=== PATIENT | male | born 1970 | race Caucasian/White ===

== ENCOUNTER 2018-05-28 09:30 | Inpatient (IN) | payer BC, OTHER ==
[~2018-05-28] VITALS: Ht 182.9 cm; Wt 142.6 kg
[2018-05-28] VITALS (12 sets, daily range): BP systolic 70–152; BP diastolic 43–67
[2018-05-28] MEDS ORDERED: normal saline 1000ml 1,000 ML IV ONE (09:37)
[2018-05-28] MEDS ORDERED: normal saline 1000ML IV soln IVB ONE (09:40)
[2018-05-28] MEDS ORDERED: morphine 4 MG/ML inj SYRINge IV ONE (09:40)
[2018-05-28] MEDS ORDERED: NO HOME MEDS (09:48)
[2018-05-28] MEDS: esmolol/sodium cl bag 250 ML IV SCH ×9 (09:54→23:46)
[2018-05-28] MEDS: NITROPRUSSIDE IV SCH ×6 (09:55→19:33)
[2018-05-28 10:00] LABS: BASOPHILS % (AUTO) 0.3 % (0-1); EOSINOPHILS % (AUTO) 0.1 % (0-6); HEMOGLOBIN 13.9 g/dl (14.0-17.9); LYMPHOCYTES # (AUTO) 1.2 X10'3 (1.1-4.8); LYMPHOCYTES % (AUTO) 7.3 % (21-51); MEAN CORPUSCULAR HEMOGLOBIN 29.3 PG (27.0-31.0); MEAN CORPUSCULAR HGB CONC 33.8 % (33.0-36.5); MEAN CORPUSCULAR VOLUME 86.7 FL (78-98); MONOCYTES # (AUTO) 0.7 X10'3 (0-0.9); MONOCYTES % (AUTO) 4.1 % (2-12); NEUTROPHILS # (AUTO) 14.4 X10'3 (1.8-7.7); NEUTROPHILS % (AUTO) 88.2 % (42-75); PLATELET COUNT 199 X10'3 (140-440); RED BLOOD COUNT 4.73 X10'6 (4.70-6.10); RED CELL DISTRIBUTION WIDTH 13.3 % (11.5-14.5); WHITE BLOOD COUNT 16.3 X10'3 (4.5-11.0)
--- NOTE | 2018-05-28 10:00 | NUR ---
Nipride increased to 1.75mcg/kg/min at [address] Smallwood.
[2018-05-28 10:07] LABS: ALANINE AMINOTRANSFERASE 47 U/L (12-78); ALBUMIN 3.4 G/DL (3.4-5.0); ALKALINE PHOSPHATASE 52 IU/L (46-116); ANION GAP 7 (8-16); ASPARTATE AMINO TRANSFERASE 25 U/L (10-37); BILIRUBIN,TOTAL 0.4 MG/DL (0.1-1.0); BLOOD UREA NITROGEN 29 MG/DL (7-18); BUN/CREATININE RATIO 20.4 (5.4-32.0); CHLORIDE 105 MMOL/L (99-107); CREATININE 1.42 MG/DL (0.60-1.10); GLUCOSE 132 MG/DL (70-104); MAGNESIUM 2.1 MG/DL (1.5-2.4); POTASSIUM 4.5 MMOL/L (3.5-5.1); SODIUM 141 MMOL/L (135-145); TOTAL CARBON DIOXIDE 28.7 MMOL/L (24-32); TOTAL PROTEIN 6.8 G/DL (6.4-8.2); eGFR 53 ML/MIN
--- NOTE | 2018-05-28 10:08 | NUR ---
Nipride increased to 2.25 mcg/kg/min per Dr Smallwood to reach systolic of 110 as goal.
[2018-05-28] MEDS ORDERED: ceFAZolin inj. 3,000 MG in normal saline 100ml IV soln 100 ML IV ONE (10:10)
[2018-05-28 10:20] LABS: INR 1.1 INR; PARTIAL THROMBOPLASTIN TIME 31 SECONDS (22-32); PROTHROMBIN TIME 11.3 SECONDS (9.0-12.0)
[2018-05-28] MEDS ORDERED: LORazepam 2 mg/ml vial ONE (10:37)
[2018-05-28] MEDS ORDERED: etomidate 2mg/ml inj. ONE ×2 (10:38→11:37)
[2018-05-28] MEDS ORDERED: fentaNYL /PF 50mcg/ml 5ml ampule ONE ×5 (10:39→11:28)
[2018-05-28] MEDS ORDERED: rocuronium 10mg/ml inj IV ONE ×3 (11:22→12:00)
[2018-05-28 11:25] LABS: ABG HCO3 24.4 mmol/L (22.0-26.0); ABG OXYGEN SATURATION 95.8 % (95-98); ABG PCO2 43.1 mmHg (35.0-45.0); ABG PH 7.371 (7.350-7.450); ABG PO2 80.8 mmHg (60.0-100.0); CL (ABG) 106 mmol/L (99-107); FCOHb 0.6 % (0.5-1.5); FMetHb 0.2 % (0.3-1.12); GLUCOSE (ABG) 146 mg/dl (70-105); IONIZED CA (ABG) 1.13 mmol/L (1.03-1.32); K (ABG) 4.5 mmol/L (3.3-5.1); NA (ABG) 138 mmol/L (135-145); TOTAL HEMOGLOBIN 13.9 G/dl (14.0-18.0)
[2018-05-28] MEDS ORDERED: pancuronium br 1mg/ml inj IV ONE (11:37)
[2018-05-28] MEDS ORDERED: 0.9 % SODIUM CHLORIDE 10 ML VIAL ONE (12:00)
[2018-05-28 12:01] LABS: ABG BASE EXCESS -2.5 mmol/L (-2.0-3.0); ABG HCO3 23.9 mmol/L (22.0-26.0); ABG OXYGEN SATURATION 92.8 % (95-98); ABG PCO2 47.6 mmHg (35.0-45.0); ABG PH 7.319 (7.350-7.450); ABG PO2 67.9 mmHg (60.0-100.0); CL (ABG) 105 mmol/L (99-107); FCOHb 1.1 % (0.5-1.5); FMetHb 0.3 % (0.3-1.12); FO2Hb 91.5 % (94-100); GLUCOSE (ABG) 139 mg/dl (70-105); IONIZED CA (ABG) 1.11 mmol/L (1.03-1.32); K (ABG) 4.7 mmol/L (3.3-5.1); NA (ABG) 135 mmol/L (135-145)
[2018-05-28] MEDS: insulin regular, human inj. 100 UNITS in normal saline 100ml IV IV SCH ×2 (12:01)
[2018-05-28] MEDS ORDERED: dextrose 50%-water 50ml dispensing syringe IV PRN (12:05)
[2018-05-28] MEDS ORDERED: insulin Lispro (HumaLOG) vial - multi-dose SQ PRN (12:05)
[2018-05-28] MEDS ORDERED: propofol inj 20 ML IV ONE ×2 (12:10)
[2018-05-28 12:15] LABS: ABG BASE EXCESS -1.3 mmol/L (-2.0-3.0); ABG HCO3 24.7 mmol/L (22.0-26.0); ABG OXYGEN SATURATION 99.7 % (95-98); ABG PCO2 46.7 mmHg (35.0-45.0); ABG PH 7.341 (7.350-7.450); ABG PO2 429.9 mmHg (60.0-100.0); CL (ABG) 101 mmol/L (99-107); FCOHb 0.6 % (0.5-1.5); FMetHb 0.3 % (0.3-1.12); FO2Hb 98.8 % (94-100); GLUCOSE (ABG) 131 mg/dl (70-105); K (ABG) 4.2 mmol/L (3.3-5.1); NA (ABG) 132 mmol/L (135-145)
[2018-05-28 12:21] LABS: ABG HCO3 VENOUS 24.9 mmol/L; ABG PCO2 VENOUS 51.7 mmHg; ABG PO2 VENOUS 55.1 mmHg; CL (ABG) 101 mmol/L (99-107); FCOHb VENOUS 0.4 %; FHHb VENOUS 11.2 %; FMetHb VENOUS 0.4 %; GLUCOSE (ABG) 132 mg/dl (70-105); IONIZED CA (ABG) 1.06 mmol/L (1.03-1.32); K (ABG) 5.2 mmol/L (3.3-5.1); NA (ABG) 132 mmol/L (135-145); TOTAL HEMOGLOBIN 11.4 G/dl (14.0-18.0)
[2018-05-28 12:36] LABS: ABG BASE EXCESS -2.4 mmol/L (-2.0-3.0); ABG HCO3 24.3 mmol/L (22.0-26.0); ABG OXYGEN SATURATION 98.2 % (95-98); ABG PCO2 50.6 mmHg (35.0-45.0); ABG PO2 138.5 mmHg (60.0-100.0); CL (ABG) 102 mmol/L (99-107); FCOHb 0.3 % (0.5-1.5); FMetHb 0.4 % (0.3-1.12); FO2Hb 97.5 % (94-100); GLUCOSE (ABG) 137 mg/dl (70-105); IONIZED CA (ABG) 1.05 mmol/L (1.03-1.32); K (ABG) 4.6 mmol/L (3.3-5.1); NA (ABG) 132 mmol/L (135-145); TOTAL HEMOGLOBIN 11.7 G/dl (14.0-18.0)
[2018-05-28 12:40] LABS: ABG BASE EXCESS -3.2 mmol/L (-2.0-3.0); ABG HCO3 19.8 mmol/L (22.0-26.0); ABG OXYGEN SATURATION 99.3 % (95-98); ABG PCO2 29.1 mmHg (35.0-45.0); ABG PO2 316.1 mmHg (60.0-100.0); CL (ABG) 104 mmol/L (99-107); FCOHb 0.2 % (0.5-1.5); FMetHb 0.2 % (0.3-1.12); FO2Hb 98.9 % (94-100); GLUCOSE (ABG) 135 mg/dl (70-105); IONIZED CA (ABG) 1.01 mmol/L (1.03-1.32); K (ABG) 5.1 mmol/L (3.3-5.1); NA (ABG) 131 mmol/L (135-145); TOTAL HEMOGLOBIN 11.6 G/dl (14.0-18.0)
[2018-05-28 13:06] LABS: ABG BASE EXCESS -2.7 mmol/L (-2.0-3.0); ABG HCO3 25.5 mmol/L (22.0-26.0); ABG OXYGEN SATURATION 99.4 % (95-98); ABG PCO2 61.8 mmHg (35.0-45.0); ABG PH 7.234 (7.350-7.450); ABG PO2 489.6 mmHg (60.0-100.0); CL (ABG) 101 mmol/L (99-107); FMetHb 0.2 % (0.3-1.12); FO2Hb 99.2 % (94-100); GLUCOSE (ABG) 180 mg/dl (70-105); IONIZED CA (ABG) 1.07 mmol/L (1.03-1.32); K (ABG) 4.4 mmol/L (3.3-5.1); NA (ABG) 134 mmol/L (135-145); TOTAL HEMOGLOBIN 11.2 G/dl (14.0-18.0)
[2018-05-28 13:11] LABS: ABG BASE EXCESS -0.9 mmol/L (-2.0-3.0); ABG HCO3 24.7 mmol/L (22.0-26.0); ABG OXYGEN SATURATION 99.5 % (95-98); ABG PCO2 44.9 mmHg (35.0-45.0); ABG PH 7.358 (7.350-7.450); CL (ABG) 103 mmol/L (99-107); FCOHb 0.1 % (0.5-1.5); FMetHb 0.2 % (0.3-1.12); FO2Hb 99.2 % (94-100); GLUCOSE (ABG) 226 mg/dl (70-105); IONIZED CA (ABG) 0.98 mmol/L (1.03-1.32); K (ABG) 5.4 mmol/L (3.3-5.1); NA (ABG) 135 mmol/L (135-145); TOTAL HEMOGLOBIN 11.1 G/dl (14.0-18.0)
[2018-05-28 13:20] LABS: ACT @ 1.70 U 270 SEC (193-297); ACT @ 2.84 U 367 SEC (260-420); BASELINE ACT 138 SEC (101-148)
[2018-05-28 13:30] LABS: ABG HCO3 22.4 mmol/L (22.0-26.0); ABG OXYGEN SATURATION 96.1 % (95-98); ABG PCO2 46.8 mmHg (35.0-45.0); ABG PH 7.298 (7.350-7.450); ABG PO2 97.3 mmHg (60.0-100.0); CL (ABG) 103 mmol/L (99-107); FCOHb 0.1 % (0.5-1.5); FMetHb 0.1 % (0.3-1.12); FO2Hb 95.9 % (94-100); GLUCOSE (ABG) 210 mg/dl (70-105); IONIZED CA (ABG) 1.12 mmol/L (1.03-1.32); K (ABG) 4.5 mmol/L (3.3-5.1); NA (ABG) 134 mmol/L (135-145)
[2018-05-28] MEDS ORDERED: albuterol 2.5 MG/3 ML nebule NEB PRN (13:30)
[2018-05-28 13:41] LABS: ABG BASE EXCESS -1.3 mmol/L (-2.0-3.0); ABG OXYGEN SATURATION 95.8 % (95-98); ABG PCO2 42.8 mmHg (35.0-45.0); ABG PH 7.367 (7.350-7.450); ABG PO2 87.9 mmHg (60.0-100.0); CL (ABG) 103 mmol/L (99-107); FCOHb 0.2 % (0.5-1.5); FMetHb 0.3 % (0.3-1.12); FO2Hb 95.3 % (94-100); GLUCOSE (ABG) 199 mg/dl (70-105); IONIZED CA (ABG) 1.07 mmol/L (1.03-1.32); K (ABG) 4.4 mmol/L (3.3-5.1); NA (ABG) 136 mmol/L (135-145); TOTAL HEMOGLOBIN 11.3 G/dl (14.0-18.0)
[2018-05-28 14:15] LABS: ABG BASE EXCESS -4.4 mmol/L (-2.0-3.0); ABG HCO3 22.2 mmol/L (22.0-26.0); ABG OXYGEN SATURATION 94.7 % (95-98); ABG PCO2 47.3 mmHg (35.0-45.0); ABG PH 7.289 (7.350-7.450); ABG PO2 85.4 mmHg (60.0-100.0); CL (ABG) 105 mmol/L (99-107); FCOHb 0.7 % (0.5-1.5); FMetHb 0.2 % (0.3-1.12); FO2Hb 93.8 % (94-100); GLUCOSE (ABG) 165 mg/dl (70-105); IONIZED CA (ABG) 1.05 mmol/L (1.03-1.32); K (ABG) 4.1 mmol/L (3.3-5.1); NA (ABG) 136 mmol/L (135-145); TOTAL HEMOGLOBIN 11.5 G/dl (14.0-18.0)
[2018-05-28] MEDS ORDERED: Neutra Phos packet PO PRN (14:30)
[2018-05-28] MEDS ORDERED: niCARDipine-NS 40mg/200ml IVPB 200 ML IV PRN (14:30)
[2018-05-28] MEDS ORDERED: metoclopramide 5 mg/ml inj IV PRN (14:30)
[2018-05-28] MEDS ORDERED: sodium phosphate inj. 30 MMOL in dextrose 5%-water 250 ML IV PRN (14:30)
[2018-05-28] MEDS ORDERED: magnesium hydroxide 30ml (MOM) UD suspension PO PRN (14:30)
[2018-05-28] MEDS ORDERED: magnesium 4gm in 100ml NS 100 ML IV PRN (14:30)
[2018-05-28] MEDS ORDERED: sodium phosphate inj. 15 MMOL in dextrose 5%-water 150 ML IV PRN (14:30)
[2018-05-28] MEDS ORDERED: ondansetron/PF 4mg/2ml inj IV PRN (14:30)
[2018-05-28] MEDS ORDERED: magnesium 2GM in 50ml NS 50 ML IV PRN (14:30)
[2018-05-28] MEDS ORDERED: DOPamine 400mg/D5W 250ml 250 ML IV PRN (14:30)
[2018-05-28] MEDS ORDERED: morphine 4 MG/ML inj SYRINge IV PRN (14:30)
[2018-05-28] MEDS ORDERED: potassium Cl 20mEq/100mL bag 100 ML IV PRN ×3 (14:30)
[2018-05-28 14:40] LABS: ABG BASE EXCESS -6.3 mmol/L (-2.0-3.0); ABG HCO3 18.5 mmol/L (22.0-26.0); ABG OXYGEN SATURATION 98.6 % (95-98); ABG PCO2 34.7 mmHg (35.0-45.0); ABG PH 7.345 (7.350-7.450); ABG PO2 167.4 mmHg (60.0-100.0); CL (ABG) 106 mmol/L (99-107); FCOHb 0.2 % (0.5-1.5); FMetHb 0.6 % (0.3-1.12); FO2Hb 97.8 % (94-100); GLUCOSE (ABG) 147 mg/dl (70-105); IONIZED CA (ABG) 1.09 mmol/L (1.03-1.32); K (ABG) 4.1 mmol/L (3.3-5.1); NA (ABG) 137 mmol/L (135-145); TOTAL HEMOGLOBIN 12.8 G/dl (14.0-18.0)
[2018-05-28] MEDS ORDERED: sodium bicarbonate 1 MEQ/1 ml inj ONE ×2 (14:51)
--- NOTE | 2018-05-28 15:00 | NUR ---
Received to room , accompanied by MDs and surgical crew. Placed on ventilator, to brake assembler, arterial line and PA line pressure monitored. Chest tubes to suction at 20 cm. Eaton cath to gravity drainage. Dressings are dry and intact. See assessment record. All vasoactive drugs are infusing via central line.
[2018-05-28] MEDS ORDERED: LIDOcaine 1% (10mg/ml) 2ml vial ONE (15:11)
[2018-05-28 15:21] LABS: ACTIVATED CLOTTING TIME 122 SEC (101-148)
[2018-05-28] MEDS: albumin (Human) 5% 250ml 250 ML IV PRN ×5 (15:24→21:16)
--- NOTE | 2018-05-28 15:30 | NUR ---
cxr done- ett advanced, thoravent placed by md to left chest. cardene up to keep sbp at 120 blood products ordered.
[2018-05-28 15:34] LABS: BASOPHILS % (AUTO) 0 % (0-1); EOSINOPHILS # (AUTO) 0.5 X10'3 (0-0.9); EOSINOPHILS % (AUTO) 2.2 % (0-6); HEMATOCRIT 36.2 % (42.0-52.0); HEMOGLOBIN 12.4 g/dl (14.0-17.9); LYMPHOCYTES % (AUTO) 4.6 % (21-51); MEAN CORPUSCULAR HEMOGLOBIN 29.4 PG (27.0-31.0); MEAN CORPUSCULAR HGB CONC 34.1 % (33.0-36.5); MEAN CORPUSCULAR VOLUME 86.2 FL (78-98); MEAN PLATELET VOLUME 8.5 FL (7.4-10.4); MONOCYTES # (AUTO) 1.6 X10'3 (0-0.9); MONOCYTES % (AUTO) 7.5 % (2-12); NEUTROPHILS # (AUTO) 18.5 X10'3 (1.8-7.7); NEUTROPHILS % (AUTO) 85.7 % (42-75); PLATELET COUNT 119 X10'3 (140-440); RED BLOOD COUNT 4.19 X10'6 (4.70-6.10); RED CELL DISTRIBUTION WIDTH 13.2 % (11.5-14.5); WHITE BLOOD COUNT 21.5 X10'3 (4.5-11.0)
[2018-05-28 15:37] LABS: INR 1.2 INR; PARTIAL THROMBOPLASTIN TIME 25 SECONDS (22-32); PROTHROMBIN TIME 12.3 SECONDS (9.0-12.0)
[2018-05-28 15:56] LABS: ALANINE AMINOTRANSFERASE 40 U/L (12-78); ALBUMIN 2.6 G/DL (3.4-5.0); ALKALINE PHOSPHATASE 36 IU/L (46-116); ANION GAP 14 (8-16); BILIRUBIN,TOTAL 0.8 MG/DL (0.1-1.0); BLOOD UREA NITROGEN 29 MG/DL (7-18); BUN/CREATININE RATIO 15.6 (5.4-32.0); CALCIUM 7.6 MG/DL (8.5-10.1); CHLORIDE 106 MMOL/L (99-107); CREATININE 1.86 MG/DL (0.60-1.10); GLUCOSE 200 MG/DL (70-104); MAGNESIUM 2.7 MG/DL (1.5-2.4); SODIUM 145 MMOL/L (135-145); TOTAL CARBON DIOXIDE 25.4 MMOL/L (24-32); TOTAL PROTEIN 5.2 G/DL (6.4-8.2); eGFR 39 ML/MIN
[2018-05-28 15:58] LABS: ASPARTATE AMINO TRANSFERASE 44 U/L (10-37); PHOSPHORUS 1.8 MG/DL (2.3-4.5); POTASSIUM 3.8 MMOL/L (3.5-5.1)
[2018-05-28 16:16] LABS: PLATELET ESTIMATE DECREASED; TOTAL CELLS COUNTED 100
[2018-05-28 16:21] LABS: ABG HCO3 26.3 mmol/L (22.0-26.0); ABG OXYGEN SATURATION 98.6 % (95-98); ABG PCO2 (T) 43.1 mmHg (35.0-48.0); ABG PO2 (T) 139.4 mmHg (83-108); FMetHb 0.2 % (0.3-1.12); FO2Hb 98.4 % (94-100); MINUTE VOLUME 13 L/min; PATIENT TEMPERATURE 36.3; PEEP 10 cm H2O; RESPIRATORY RATE 14 b/min; TIDAL VOLUME 850 mL; TOTAL HEMOGLOBIN 12.8 G/dl (14.0-18.0)
--- NOTE | 2018-05-28 17:00 | NUR ---
cxr repeated x2- pneumo resolved per radiologist. ct output up- sbp now 90's- cardene off- hgb done. cryo, plts and albumin given. update to dr. garay and veronica calixto. orders received.pt now awakening - family in off and on and updated.
[2018-05-28 17:28] LABS: HEMATOCRIT 33.9 % (42.0-52.0); HEMOGLOBIN 11.5 g/dl (14.0-17.9); MEAN CORPUSCULAR HEMOGLOBIN 29.5 PG (27.0-31.0); MEAN CORPUSCULAR VOLUME 86.7 FL (78-98); MEAN PLATELET VOLUME 8.4 FL (7.4-10.4); PLATELET COUNT 159 X10'3 (140-440); RED BLOOD COUNT 3.91 X10'6 (4.70-6.10); RED CELL DISTRIBUTION WIDTH 13.4 % (11.5-14.5); WHITE BLOOD COUNT 18.1 X10'3 (4.5-11.0)
[2018-05-28] MEDS ORDERED: propofol 1000mg/100ml bottle 100 ML IV ONE (18:21)
--- NOTE | 2018-05-28 18:30 | NUR ---
Patient in room CICU 2008. I have received report from Patience CORRALES and had the opportunity to ask questions and assume patient care.
[2018-05-28] MEDS ORDERED: NORepinephrine 8mg/ 250ml NS 250 ML IV PRN (18:34)
[2018-05-28] MEDS: morphine 4 MG/ML inj SYRINge IV PRN ×3 (18:40→23:22)
[2018-05-28 19:43] LABS: INR 1.1 INR; PARTIAL THROMBOPLASTIN TIME 27 SECONDS (22-32); PROTHROMBIN TIME 11.2 SECONDS (9.0-12.0)
[2018-05-28] MEDS: ceFAZolin inj. 2,000 MG in dextrose 5%-water 100 ML IV SCH (19:51)
[2018-05-28] MEDS: docusate sod 100mg capsule PO SCH (20:00)
[2018-05-28 21:12] LABS: BASOPHILS % (AUTO) 0.3 % (0-1); EOSINOPHILS % (AUTO) 0 % (0-6); HEMATOCRIT 29.9 % (42.0-52.0); HEMOGLOBIN 10.2 g/dl (14.0-17.9); LYMPHOCYTES # (AUTO) 0.6 X10'3 (1.1-4.8); LYMPHOCYTES % (AUTO) 4.1 % (21-51); MEAN CORPUSCULAR HEMOGLOBIN 29.5 PG (27.0-31.0); MEAN CORPUSCULAR VOLUME 86.6 FL (78-98); MEAN PLATELET VOLUME 8.6 FL (7.4-10.4); MONOCYTES # (AUTO) 0.6 X10'3 (0-0.9); MONOCYTES % (AUTO) 4.1 % (2-12); NEUTROPHILS % (AUTO) 91.5 % (42-75); PLATELET COUNT 164 X10'3 (140-440); RED BLOOD COUNT 3.46 X10'6 (4.70-6.10); RED CELL DISTRIBUTION WIDTH 13.4 % (11.5-14.5); WHITE BLOOD COUNT 15.3 X10'3 (4.5-11.0)
[2018-05-28] MEDS: vancomycin/NS 1 GM ADD-VANTAGE 250 ML IV SCH (21:16)
[2018-05-28] MEDS ORDERED: albumin (Human) 5% 250ml 250 ML IV ONE ×2 (21:35)
--- NOTE | 2018-05-28 21:35 | NUR ---
Dr. Vogt updated of pt's current labs,recent hemodynamics and chest tube output. Orders received. Titrating Levophed to keep MAP greater than 60. Pt awakens quickly, attempts to sit up and grab at sides. Titrating sedation for pt comfort and safety.
[2018-05-28] MEDS: mupirocin 2% ointment 22GM NS SCH (21:59)
[2018-05-28] MEDS: dexmedetomidin/NS 400mcg/100ml 100 ML IV SCH (22:04)
[2018-05-28 23:16] LABS: ABG BASE EXCESS -1.4 mmol/L (-2.0-3.0); ABG OXYGEN SATURATION 98.4 % (95-98); ABG PCO2 (T) 37.9 mmHg (35.0-48.0); ABG PH (T) 7.402 (7.350-7.450); ABG PO2 (T) 179.3 mmHg (83-108); FCOHb 0.1 % (0.5-1.5); FMetHb 0.1 % (0.3-1.12); FO2Hb 98.2 % (94-100); MINUTE VOLUME 13 L/min; PATIENT TEMPERATURE 37.2; PEEP 10 cm H2O; RESPIRATORY RATE 14 b/min; RESPIRATORY RATE (OBSERVED) 14 b/min; TIDAL VOLUME 850 mL; TOTAL HEMOGLOBIN 9.8 G/dl (14.0-18.0)
[2018-05-29] VITALS (24 sets, daily range): BP systolic 104–150; BP diastolic 44–62
[2018-05-29] LABS: BASOPHILS % (AUTO) 0 % (0-1); EOSINOPHILS # (AUTO) 0.2 X10'3 (0-0.9); EOSINOPHILS % (AUTO) 1.1 % (0-6); HEMATOCRIT 26.6 % (42.0-52.0); HEMOGLOBIN 9.1 g/dl (14.0-17.9); LYMPHOCYTES # (AUTO) 0.6 X10'3 (1.1-4.8); LYMPHOCYTES % (AUTO) 3.9 % (21-51); MEAN CORPUSCULAR HEMOGLOBIN 29.7 PG (27.0-31.0); MEAN CORPUSCULAR HGB CONC 34.3 % (33.0-36.5); MEAN CORPUSCULAR VOLUME 86.8 FL (78-98); MEAN PLATELET VOLUME 8.9 FL (7.4-10.4); MONOCYTES # (AUTO) 0.9 X10'3 (0-0.9); MONOCYTES % (AUTO) 5.4 % (2-12); NEUTROPHILS # (AUTO) 14.5 X10'3 (1.8-7.7); NEUTROPHILS % (AUTO) 89.6 % (42-75); PLATELET COUNT 144 X10'3 (140-440); RED BLOOD COUNT 3.06 X10'6 (4.70-6.10); RED CELL DISTRIBUTION WIDTH 13.5 % (11.5-14.5); WHITE BLOOD COUNT 16.2 X10'3 (4.5-11.0)
[2018-05-29 00:19] LABS: ALBUMIN 3.7 G/DL (3.4-5.0); ANION GAP 11 (8-16); BLOOD UREA NITROGEN 37 MG/DL (7-18); BUN/CREATININE RATIO 14.3 (5.4-32.0); CALCIUM 7.7 MG/DL (8.5-10.1); CHLORIDE 107 MMOL/L (99-107); CREATININE 2.58 MG/DL (0.60-1.10); GLUCOSE 188 MG/DL (70-104); MAGNESIUM 2.4 MG/DL (1.5-2.4); PHOSPHORUS 1.8 MG/DL (2.3-4.5); SODIUM 142 MMOL/L (135-145); TOTAL CARBON DIOXIDE 24.1 MMOL/L (24-32); eGFR 27 ML/MIN
[2018-05-29] MEDS: ceFAZolin inj. 2,000 MG in dextrose 5%-water 100 ML IV SCH ×3 (00:19→15:14)
[2018-05-29] MEDS: NITROPRUSSIDE IV SCH ×4 (00:22→05:11)
[2018-05-29] MEDS: esmolol/sodium cl bag 250 ML IV SCH ×3 (01:30→04:58)
[2018-05-29] MEDS: propofol 1000mg/100ml bottle 100 ML IV PRN ×3 (02:13→15:14)
[2018-05-29] MEDS: dexmedetomidin/NS 400mcg/100ml 100 ML IV SCH ×6 (02:43→23:46)
[2018-05-29 03:21] LABS: BASOPHILS % (AUTO) 0.1 % (0-1); EOSINOPHILS % (AUTO) 0.1 % (0-6); HEMATOCRIT 25.1 % (42.0-52.0); HEMOGLOBIN 8.6 g/dl (14.0-17.9); LYMPHOCYTES # (AUTO) 0.8 X10'3 (1.1-4.8); MEAN CORPUSCULAR HEMOGLOBIN 29.8 PG (27.0-31.0); MEAN CORPUSCULAR HGB CONC 34.1 % (33.0-36.5); MEAN CORPUSCULAR VOLUME 87.4 FL (78-98); MEAN PLATELET VOLUME 8.9 FL (7.4-10.4); MONOCYTES # (AUTO) 0.8 X10'3 (0-0.9); MONOCYTES % (AUTO) 5.3 % (2-12); NEUTROPHILS # (AUTO) 14.1 X10'3 (1.8-7.7); NEUTROPHILS % (AUTO) 89.5 % (42-75); PLATELET COUNT 132 X10'3 (140-440); RED BLOOD COUNT 2.87 X10'6 (4.70-6.10); RED CELL DISTRIBUTION WIDTH 13.1 % (11.5-14.5); WHITE BLOOD COUNT 15.8 X10'3 (4.5-11.0)
[2018-05-29 03:36] LABS: INR 1.1 INR; PARTIAL THROMBOPLASTIN TIME 25 SECONDS (22-32); PROTHROMBIN TIME 10.7 SECONDS (9.0-12.0)
[2018-05-29 03:50] LABS: ALANINE AMINOTRANSFERASE 33 U/L (12-78); ALBUMIN 3.5 G/DL (3.4-5.0); ALBUMIN/GLOBULIN RATIO 1.5 (1.1-1.5); ALKALINE PHOSPHATASE 34 IU/L (46-116); ANION GAP 11 (8-16); ASPARTATE AMINO TRANSFERASE 39 U/L (10-37); BILIRUBIN,TOTAL 0.5 MG/DL (0.1-1.0); BLOOD UREA NITROGEN 40 MG/DL (7-18); BUN/CREATININE RATIO 13.5 (5.4-32.0); CALCIUM 7.8 MG/DL (8.5-10.1); CHLORIDE 107 MMOL/L (99-107); CREATININE 2.96 MG/DL (0.60-1.10); GLUCOSE 147 MG/DL (70-104); MAGNESIUM 2.4 MG/DL (1.5-2.4); PHOSPHORUS 1.6 MG/DL (2.3-4.5); POTASSIUM 4.7 MMOL/L (3.5-5.1); SODIUM 143 MMOL/L (135-145); TOTAL CARBON DIOXIDE 25.5 MMOL/L (24-32); TOTAL PROTEIN 5.8 G/DL (6.4-8.2); eGFR 23 ML/MIN
[2018-05-29 03:50] LABS: ABG BASE EXCESS 0.6 mmol/L (-2.0-3.0); ABG OXYGEN SATURATION 95.4 % (95-98); ABG PCO2 (T) 39.7 mmHg (35.0-48.0); ABG PH (T) 7.419 (7.350-7.450); ABG PO2 (T) 83.3 mmHg (83-108); FCOHb 0.1 % (0.5-1.5); FMetHb 0.2 % (0.3-1.12); FO2Hb 95.1 % (94-100); MINUTE VOLUME 13 L/min; PATIENT TEMPERATURE 37.3; PEEP 10 cm H2O; RESPIRATORY RATE 14 b/min; RESPIRATORY RATE (OBSERVED) 14 b/min; TIDAL VOLUME 850 mL; TOTAL HEMOGLOBIN 9.4 G/dl (14.0-18.0)
[2018-05-29] MEDS: morphine 4 MG/ML inj SYRINge IV PRN ×3 (05:46→14:36)
--- NOTE | 2018-05-29 06:30 | NUR ---
Patient in room CICU 2009. I have received report from harriet. and had the opportunity to ask questions and assume patient care.
--- NOTE | 2018-05-29 06:32 | NUR ---
Problems reprioritized. Patient report given, questions answered & plan of care reviewed with Patience CORRALES.
[2018-05-29] MEDS ORDERED: DOBUTamine-DoBUTrex 500mg/D5W 250 ML IV PRN (07:45)
[2018-05-29] MEDS ORDERED: DOBUTamine-DoBUTrex 500mg/D5W 250 ML IV ONE (07:46)
[2018-05-29] MEDS: vancomycin/NS 1 GM ADD-VANTAGE 250 ML IV SCH ×2 (07:51→20:56)
[2018-05-29] MEDS: mupirocin 2% ointment 22GM NS SCH ×2 (07:51→20:56)
[2018-05-29] MEDS: atorvastatin 10mg tablet PO SCH (08:00)
[2018-05-29] MEDS: docusate sod 100mg capsule PO SCH (08:00)
[2018-05-29] MEDS: metoprolol tartrate 12.5mg (1/2 tablet) PO SCH (08:00)
[2018-05-29] MEDS: aspirin 325mg tablet, delayed-release (Ecotrin) PO SCH (08:00)
--- NOTE | 2018-05-29 08:00 | NUR ---
update to md re vent settings, gtts, meds, labs, vs, hemodynamics. orders received. will keep sbp at 150 or less. peep to 8.
[2018-05-29] MEDS: sodium chloride 0.45% 1,000 ML IV SCH (08:15)
[2018-05-29] MEDS ORDERED: propofol 1000mg/100ml bottle 100 ML IV PRN (08:51)
--- NOTE | 2018-05-29 10:00 | NUR ---
sats to 89%- peep back to 10 and then fio2 to 65%- will observe. hemodynamics stable. levo off since am. cardene remains off. on dobutamine 3mcg.
[2018-05-29 11:46] LABS: SODIUM,URINE RANDOM < 15 MEQ/L
[2018-05-29 11:46] LABS: HEMOGLOBIN 8.1 g/dl (14.0-17.9); MEAN CORPUSCULAR HEMOGLOBIN 29.3 PG (27.0-31.0); MEAN CORPUSCULAR HGB CONC 33.7 % (33.0-36.5); MEAN CORPUSCULAR VOLUME 87.1 FL (78-98); MEAN PLATELET VOLUME 9.8 FL (7.4-10.4); PLATELET COUNT 121 X10'3 (140-440); RED BLOOD COUNT 2.75 X10'6 (4.70-6.10); RED CELL DISTRIBUTION WIDTH 13.5 % (11.5-14.5); WHITE BLOOD COUNT 21.6 X10'3 (4.5-11.0)
[2018-05-29 11:48] LABS: CLARITY,URINE CLEAR (Clear); COLOR,URINE YELLOW (Yellow); GLUCOSE, URINE NEGATIVE (Neg); KETONES,URINE 15 mg/dl (Neg); LEUKOCYTE ESTERASE ,URINE TRACE (Neg); NITRITES, URINE NEGATIVE (Neg); OCCULT BLOOD,URINE LARGE (Neg); PH,URINE 5.5 (4.8-8.0); PROTEIN,URINE TRACE mg/dl (Neg); UROBILINOGEN,URINE 0.2 E.U/dL (0.2-1.0)
[2018-05-29 11:53] LABS: UA COLLECTION TYPE FOLEY CATH
[2018-05-29 11:54] LABS: BACTERIA,URINE FEW /HPF (Neg); RBC,URINE 0-2 /HPF (0-2); WBC,URINE 20-30 /HPF (0-4)
[2018-05-29 11:55] LABS: HYALINE CASTS 0-3 /LPF (NEGATIVE); MUCUS STRANDS FEW /LPF (Neg); RENAL CELLS, URINE FEW /HPF; SQUAMOUS EPITHELIAL CELL,UR FEW /LPF (FEW); TRANSITIONAL EPI CELLS,URINE FEW /HPF
[2018-05-29 12:17] LABS: MAGNESIUM 2.4 MG/DL (1.5-2.4); PHOSPHORUS 2.5 MG/DL (2.3-4.5); POTASSIUM 4.4 MMOL/L (3.5-5.1)
--- NOTE | 2018-05-29 14:29 | NUR ---
sats improving- able to decrease peep and fio2- replacing k- pt able to calmly nod to mother and then to nurse when asked questions. yes to mouth care and yes to pain med
[2018-05-29 17:31] LABS: ABG BASE EXCESS 1.7 mmol/L (-2.0-3.0); ABG HCO3 25.7 mmol/L (22.0-26.0); ABG OXYGEN SATURATION 90.4 % (95-98); ABG PCO2 (T) 38.7 mmHg (35.0-48.0); ABG PH (T) 7.442 (7.350-7.450); ABG PO2 (T) 61.7 mmHg (83-108); FCOHb 0.1 % (0.5-1.5); FMetHb 0.1 % (0.3-1.12); FO2Hb 90.2 % (94-100); MINUTE VOLUME 14 L/min; PATIENT TEMPERATURE 37.7; PEEP 6 cm H2O; RESPIRATORY RATE 14 b/min; TIDAL VOLUME 850 mL; TOTAL HEMOGLOBIN 8.8 G/dl (14.0-18.0)
--- NOTE | 2018-05-29 17:33 | NUR ---
abg done on fio2 50 and peep of 6- po2 60's- dr sifuetnes aware and here- aware of labs, vent settings etc. ok to decrease dobutamine to keep ci at 2.5
--- NOTE | 2018-05-29 18:30 | NUR ---
Patient in room CICU 2008. I have received report from Patience CORRALES and had the opportunity to ask questions and assume patient care.
[2018-05-29 19:33] LABS: ALANINE AMINOTRANSFERASE 28 U/L (12-78); ALBUMIN 3.3 G/DL (3.4-5.0); ALBUMIN/GLOBULIN RATIO 1.4 (1.1-1.5); ALKALINE PHOSPHATASE 34 IU/L (46-116); ANION GAP 12 (8-16); ASPARTATE AMINO TRANSFERASE 71 U/L (10-37); BILIRUBIN,TOTAL 0.3 MG/DL (0.1-1.0); BLOOD UREA NITROGEN 57 MG/DL (7-18); BUN/CREATININE RATIO 13.5 (5.4-32.0); CALCIUM 7.9 MG/DL (8.5-10.1); CHLORIDE 107 MMOL/L (99-107); CREATININE 4.23 MG/DL (0.60-1.10); GLUCOSE 110 MG/DL (70-104); SODIUM 143 MMOL/L (135-145); TOTAL CARBON DIOXIDE 24.4 MMOL/L (24-32); TOTAL PROTEIN 5.7 G/DL (6.4-8.2); eGFR 15 ML/MIN
[2018-05-29 19:35] LABS: POTASSIUM 4.5 MMOL/L (3.5-5.1)
--- NOTE | 2018-05-29 19:45 | NUR ---
[place] updated of pt's current lab results. No new orders at this time. Will continue to monitor.
[2018-05-29] MEDS: niCARDipine-NS 40mg/200ml IVPB 200 ML IV SCH (20:00)
[2018-05-29] MEDS: mineral oil/petrolatum ophthal oint EACHEYE SCH (20:56)
[2018-05-29] MEDS: lactobacillus rhamnosus 10,000 MMU CELLS/CAPSULE PO SCH (20:57)
[2018-05-29] MEDS: docusate sodium 100mg/10ml UD cup PO SCH (20:57)
--- NOTE | 2018-05-29 23:30 | NUR ---
Problems reprioritized. Patient report given, questions answered & plan of care reviewed with Aydee CORRALES.
[2018-05-30] VITALS (26 sets, daily range): BP systolic 68–201; BP diastolic 39–80
[2018-05-30] MEDS: ceFAZolin inj. 2,000 MG in dextrose 5%-water 100 ML IV SCH ×2
[2018-05-30] MEDS: niCARDipine-NS 40mg/200ml IVPB 200 ML IV SCH ×2 (01:47→09:51)
[2018-05-30] MEDS: insulin regular, human inj. 100 UNITS in normal saline 100ml IV IV SCH ×2 (01:54)
[2018-05-30] MEDS: mineral oil/petrolatum ophthal oint EACHEYE SCH ×4 (01:55→20:32)
[2018-05-30 03:36] LABS: BASOPHILS % (AUTO) 0 % (0-1); EOSINOPHILS # (AUTO) 0.3 X10'3 (0-0.9); EOSINOPHILS % (AUTO) 1.5 % (0-6); HEMATOCRIT 22.5 % (42.0-52.0); HEMOGLOBIN 7.5 g/dl (14.0-17.9); LYMPHOCYTES # (AUTO) 1.6 X10'3 (1.1-4.8); LYMPHOCYTES % (AUTO) 7.3 % (21-51); MEAN CORPUSCULAR HEMOGLOBIN 29.2 PG (27.0-31.0); MEAN CORPUSCULAR HGB CONC 33.5 % (33.0-36.5); MEAN PLATELET VOLUME 9.6 FL (7.4-10.4); MONOCYTES # (AUTO) 2.1 X10'3 (0-0.9); MONOCYTES % (AUTO) 9.4 % (2-12); NEUTROPHILS % (AUTO) 81.8 % (42-75); PLATELET COUNT 124 X10'3 (140-440); RED BLOOD COUNT 2.59 X10'6 (4.70-6.10); RED CELL DISTRIBUTION WIDTH 13.9 % (11.5-14.5)
[2018-05-30 03:57] LABS: ALBUMIN 3.1 G/DL (3.4-5.0); ANION GAP 11 (8-16); BLOOD UREA NITROGEN 64 MG/DL (7-18); BUN/CREATININE RATIO 15.4 (5.4-32.0); CHLORIDE 108 MMOL/L (99-107); CREATININE 4.16 MG/DL (0.60-1.10); GLUCOSE 119 MG/DL (70-104); MAGNESIUM 2.6 MG/DL (1.5-2.4); PHOSPHORUS 3.9 MG/DL (2.3-4.5); POTASSIUM 4.2 MMOL/L (3.5-5.1); SODIUM 143 MMOL/L (135-145); TOTAL CARBON DIOXIDE 24.5 MMOL/L (24-32); eGFR 15 ML/MIN
[2018-05-30 04:35] LABS: PLATELET ESTIMATE DECREASED; TOTAL CELLS COUNTED 100
[2018-05-30 04:36] LABS: ANISOCYTOSIS 1+; HYPOCHROMASIA 1+
[2018-05-30] MEDS: dexmedetomidin/NS 400mcg/100ml 100 ML IV SCH ×4 (04:39→17:37)
[2018-05-30 04:45] LABS: ABG BASE EXCESS 1.5 mmol/L (-2.0-3.0); ABG HCO3 25.3 mmol/L (22.0-26.0); ABG OXYGEN SATURATION 87.7 % (95-98); ABG PH (T) 7.464 (7.350-7.450); FCOHb 0.2 % (0.5-1.5); FMetHb 0.3 % (0.3-1.12); FO2Hb 87.3 % (94-100); MINUTE VOLUME 13 L/min; PATIENT TEMPERATURE 36.7; PEEP 6 cm H2O; RESPIRATORY RATE 14 b/min; RESPIRATORY RATE (OBSERVED) 14 b/min; TOTAL HEMOGLOBIN 8.2 G/dl (14.0-18.0)
--- NOTE | 2018-05-30 06:30 | NUR ---
Patient in room CICU 2009. I have received report from EFRA and had the opportunity to ask questions and assume patient care.
[2018-05-30] MEDS: pantoprazole 40mg Tablet.DR PO SCH (07:30)
[2018-05-30 07:36] LABS: ABG BASE EXCESS 0.3 mmol/L (-2.0-3.0); ABG OXYGEN SATURATION 91.2 % (95-98); ABG PCO2 (T) 33.5 mmHg (35.0-48.0); ALLEN'S TEST Positive; FCOHb 0.1 % (0.5-1.5); FMetHb 0.2 % (0.3-1.12); FO2Hb 90.9 % (94-100); MINUTE VOLUME 13 L/min; PATIENT TEMPERATURE 36.4; PEEP 10 cm H2O; RESPIRATORY RATE 14 b/min; RESPIRATORY RATE (OBSERVED) 14 b/min; TIDAL VOLUME 850 mL; TOTAL HEMOGLOBIN 8.1 G/dl (14.0-18.0)
[2018-05-30] MEDS: aspirin 325mg tablet, delayed-release (Ecotrin) PO SCH (08:00)
[2018-05-30] MEDS: metoprolol tartrate 12.5mg (1/2 tablet) PO SCH (08:00)
--- NOTE | 2018-05-30 08:00 | NUR ---
ELISEO FAM AND DR SEWELL IN- UPDATED RE VENT SETTING, HEMODYNAMICS, UO, CXR, MEDS ETC. LASIX 40MG GIVEN- -STILL 30 TO 40/HR ONLY.
[2018-05-30] MEDS ORDERED: furosemide 40mg/4ml inj IV ONE (08:15)
[2018-05-30] MEDS ORDERED: furosemide 40mg/4ml inj ONE (08:17)
--- NOTE | 2018-05-30 08:30 | NUR ---
CI 3.3- DOBUTAMINE FROM 2.5 TO 2- MD REQUESTS TO OFF- WITHIN A FEW MINUTES SBP TO 60'S AND HR TO 50'S. SEJAL OLSON,PRECEDEX OFF- DR ROBLES HERE AND AWARE- DOBUTAMINE ON TO 1 MCG- SBP AND HR UP- HOB DOWN BRIEFLY.
--- NOTE | 2018-05-30 09:00 | NUR ---
DIIPRIVAN AND PRECEDEX BACK ON, HOB UP , CI 2.5. CT DRAINAGE MINIMAL- DK RED. LABS REPORTED.
[2018-05-30] MEDS: morphine 4 MG/ML inj SYRINge IV PRN ×2 (09:38→21:36)
[2018-05-30] MEDS: atorvastatin 10mg tablet PO SCH (09:44)
[2018-05-30] MEDS: lactobacillus rhamnosus 10,000 MMU CELLS/CAPSULE PO SCH ×2 (09:44→21:35)
[2018-05-30] MEDS: mupirocin 2% ointment 22GM NS SCH (09:44)
[2018-05-30] MEDS: docusate sodium 100mg/10ml UD cup PO SCH ×2 (09:44→20:32)
[2018-05-30] MEDS: sodium chloride 0.45% 1,000 ML IV SCH (09:56)
[2018-05-30] MEDS: pantoprazole 40 MG vial IV SCH (09:56)
--- NOTE | 2018-05-30 10:20 | NUR ---
BRIEF HTN- SBP UP TO 190S- CARDENE ON- OFF AFTER A FEW MINUTES. FAMILY IN AND OUT- UPDATED FREQUENTLY.
[2018-05-30] MEDS: furosemide inj 100 ML IV SCH (12:48)
[2018-05-30 14:56] LABS: ABG BASE EXCESS 0.9 mmol/L (-2.0-3.0); ABG HCO3 24.9 mmol/L (22.0-26.0); ABG OXYGEN SATURATION 85.9 % (95-98); ABG PCO2 (T) 35.7 mmHg (35.0-48.0); ABG PH (T) 7.459 (7.350-7.450); ABG PO2 (T) 52.5 mmHg (83-108); FCOHb 0.2 % (0.5-1.5); FMetHb 0.3 % (0.3-1.12); FO2Hb 85.5 % (94-100); MINUTE VOLUME 14 L/min; PATIENT TEMPERATURE 36.5; PEEP 10 cm H2O; RESPIRATORY RATE 20 b/min; RESPIRATORY RATE (OBSERVED) 25 b/min; TIDAL VOLUME 500 mL; TOTAL HEMOGLOBIN 7.9 G/dl (14.0-18.0)
[2018-05-30] MEDS: amiodarone/D5 360MG/200ML BAG 200 ML IV SCH ×2 (15:50→21:54)
[2018-05-30] MEDS ORDERED: amiodarone 150mg/dext, iso-os 100 ML IV ONE ×2 (15:50→15:53)
[2018-05-30] MEDS ORDERED: amiodarone 50MG/ML inj IV ONE (15:53)
[2018-05-30] MEDS ORDERED: rocuronium 10mg/ml inj IV ONE (16:00)
[2018-05-30] MEDS ORDERED: diltiazem 5mg/ml 5ml inj. IV ONE ×2 (16:03→16:15)
[2018-05-30 16:55] LABS: ABG BASE EXCESS 0.4 mmol/L (-2.0-3.0); ABG HCO3 25.3 mmol/L (22.0-26.0); ABG OXYGEN SATURATION 81.6 % (95-98); ABG PCO2 (T) 41.4 mmHg (35.0-48.0); ABG PH (T) 7.402 (7.350-7.450); FCOHb 0.2 % (0.5-1.5); FMetHb 0.2 % (0.3-1.12); FO2Hb 81.3 % (94-100); MINUTE VOLUME 15 L/min; PATIENT TEMPERATURE 36.8; PEEP 15 cm H2O; RESPIRATORY RATE 20 b/min; RESPIRATORY RATE (OBSERVED) 25 b/min; TIDAL VOLUME 550 mL
[2018-05-30] MEDS: diltiazem-D5W 125mg/125ml 125 ML IV SCH (17:32)
[2018-05-30] MEDS: propofol 1000mg/100ml bottle 100 ML IV PRN ×2 (17:36→17:37)
--- NOTE | 2018-05-30 18:00 | NUR ---
this afternoon. pt unstable- vent settings changed to ac, fio2 to 100% and peep of 15. frequent updates to family, dr sifuentes and dr flores. sats from 94 to 83. hr down to 50's and sbp of 70's- pacer on, levo on , cardene, and sedation off. then resolved with pacer and levo off. hr then to afib 160's with sbp of 200's. dobutamine from [address] yu, kristi pa and dr flores at . bronch done with some thick sx, rt chest tube placed for potential pleural effusion. hd and libby on hold for now. sats up to 94 at end of shift. ci stable.
--- NOTE | 2018-05-30 18:30 | NUR ---
I have received report and assumed care of pt. Pt resting in bed rise and fall of chest cavity equile and symmetrical, rt medial chest tube in place no air leak, chest tubes mediastinal x2 communicating into 1 atrium no air leak noted. left upper chest has a thoravent in place no crepitus no tracheal deviation noted, Cardizem in place for heart rate control, insulin drip in place for glucose control dobutamine in place for CI control, Lasix drip in place md orders followed all vasoactive medication transfusing walter cvl
[2018-05-30] MEDS ORDERED: NORepinephrine 8mg/ 250ml NS 250 ML IV SCH (19:37)
[2018-05-30 20:28] LABS: BASOPHILS # (AUTO) 0.1 X10'3 (0-0.2); BASOPHILS % (AUTO) 0.4 % (0-1); EOSINOPHILS % (AUTO) 0 % (0-6); HEMOGLOBIN 7.3 g/dl (14.0-17.9); LYMPHOCYTES # (AUTO) 1.4 X10'3 (1.1-4.8); LYMPHOCYTES % (AUTO) 7.8 % (21-51); MEAN CORPUSCULAR HGB CONC 33.6 % (33.0-36.5); MEAN CORPUSCULAR VOLUME 86.4 FL (78-98); MEAN PLATELET VOLUME 10.3 FL (7.4-10.4); MONOCYTES # (AUTO) 1.8 X10'3 (0-0.9); NEUTROPHILS # (AUTO) 14.7 X10'3 (1.8-7.7); NEUTROPHILS % (AUTO) 81.8 % (42-75); PLATELET COUNT 129 X10'3 (140-440); RED BLOOD COUNT 2.52 X10'6 (4.70-6.10); RED CELL DISTRIBUTION WIDTH 13.8 % (11.5-14.5)
[2018-05-30 20:37] LABS: HEMATOCRIT 21.7 % (42.0-52.0)
[2018-05-30 20:39] LABS: ALANINE AMINOTRANSFERASE 21 U/L (12-78); ALBUMIN 3.1 G/DL (3.4-5.0); ALBUMIN/GLOBULIN RATIO 1.1 (1.1-1.5); ALKALINE PHOSPHATASE 40 IU/L (46-116); ANION GAP 11 (8-16); ASPARTATE AMINO TRANSFERASE 55 U/L (10-37); BILIRUBIN,TOTAL 0.4 MG/DL (0.1-1.0); BLOOD UREA NITROGEN 77 MG/DL (7-18); BUN/CREATININE RATIO 18.6 (5.4-32.0); CALCIUM 7.7 MG/DL (8.5-10.1); CHLORIDE 108 MMOL/L (99-107); CREATININE 4.14 MG/DL (0.60-1.10); GLUCOSE 111 MG/DL (70-104); MAGNESIUM 2.8 MG/DL (1.5-2.4); POTASSIUM 4.2 MMOL/L (3.5-5.1); SODIUM 143 MMOL/L (135-145); TOTAL CARBON DIOXIDE 24.3 MMOL/L (24-32); TOTAL PROTEIN 5.8 G/DL (6.4-8.2); eGFR 15 ML/MIN
--- NOTE | 2018-05-30 22:20 | NUR ---
Spoke to Dr. Campos regarding pts elevated sbp in the 180's, orders received to turn off the dobutamine, DO NOT use Cardene for blood pressure control, it is ok to increase the Cardizem too keep [id number], spoke to him about Hct 21.7 hgb 7.3 no transfusion orders at this time. Addendum: 05/31/18 at 0149 by Terese Thomas RN Dr. Campos is also aware that the pt is in afib controlled rate no new orders regarding the afib
[2018-05-31] VITALS (30 sets, daily range): BP systolic 97–152; BP diastolic 42–55
[2018-05-31] MEDS: propofol 1000mg/100ml bottle 100 ML IV PRN ×3 (00:04→13:04)
--- NOTE | 2018-05-31 00:05 | NUR ---
on and off dobutamine, when dobutamine is off sbp drops to the mid 80's propofol and Precedex are both minimal and Cardizem turned off, dobutamine turned back on will continue to attempt to have dobutamine turned off.
[2018-05-31] MEDS: dexmedetomidin/NS 400mcg/100ml 100 ML IV SCH ×3 (01:12→17:31)
[2018-05-31] MEDS: mineral oil/petrolatum ophthal oint EACHEYE SCH ×4 (02:00→20:00)
[2018-05-31 03:18] LABS: BASOPHILS % (AUTO) 0.2 % (0-1); EOSINOPHILS % (AUTO) 0.3 % (0-6); LYMPHOCYTES # (AUTO) 1.4 X10'3 (1.1-4.8); LYMPHOCYTES % (AUTO) 10.1 % (21-51); MEAN CORPUSCULAR HEMOGLOBIN 29.7 PG (27.0-31.0); MEAN CORPUSCULAR HGB CONC 34.1 % (33.0-36.5); MEAN CORPUSCULAR VOLUME 87.2 FL (78-98); MEAN PLATELET VOLUME 9.6 FL (7.4-10.4); MONOCYTES # (AUTO) 1.3 X10'3 (0-0.9); MONOCYTES % (AUTO) 8.9 % (2-12); NEUTROPHILS # (AUTO) 11.4 X10'3 (1.8-7.7); NEUTROPHILS % (AUTO) 80.5 % (42-75); PLATELET COUNT 112 X10'3 (140-440); RED BLOOD COUNT 2.33 X10'6 (4.70-6.10); RED CELL DISTRIBUTION WIDTH 13.5 % (11.5-14.5); WHITE BLOOD COUNT 14.1 X10'3 (4.5-11.0)
[2018-05-31 03:28] LABS: HEMOGLOBIN 6.9 g/dl (14.0-17.9)
[2018-05-31 03:29] LABS: HEMATOCRIT 20.3 % (42.0-52.0)
--- NOTE | 2018-05-31 03:41 | NUR ---
spoke to dr Vogt regarding pts hg 6.9 hct 20.3 and pt is on and off dobutamine new orders received for 1 unit PRBC
[2018-05-31] MEDS: amiodarone/D5 360MG/200ML BAG 200 ML IV SCH ×2 (03:58→10:02)
[2018-05-31 04:16] LABS: ABG BASE EXCESS 1.6 mmol/L (-2.0-3.0); ABG HCO3 25.8 mmol/L (22.0-26.0); ABG OXYGEN SATURATION 93.2 % (95-98); FCOHb 0.2 % (0.5-1.5); FMetHb 0.1 % (0.3-1.12); FO2Hb 92.9 % (94-100); MINUTE VOLUME 14 L/min; PATIENT TEMPERATURE 37.4; PEEP 15 cm H2O; RESPIRATORY RATE 20 b/min; RESPIRATORY RATE (OBSERVED) 22 b/min; TIDAL VOLUME 550 mL; TOTAL HEMOGLOBIN 7.8 G/dl (14.0-18.0)
[2018-05-31 05:09] LABS: ALBUMIN 2.9 G/DL (3.4-5.0); ANION GAP 13 (8-16); BLOOD UREA NITROGEN 85 MG/DL (7-18); BUN/CREATININE RATIO 19.4 (5.4-32.0); CALCIUM 7.6 MG/DL (8.5-10.1); CHLORIDE 108 MMOL/L (99-107); CREATININE 4.38 MG/DL (0.60-1.10); GLUCOSE 105 MG/DL (70-104); MAGNESIUM 2.8 MG/DL (1.5-2.4); PHOSPHORUS 6.6 MG/DL (2.3-4.5); POTASSIUM 4.3 MMOL/L (3.5-5.1); SODIUM 147 MMOL/L (135-145); TOTAL CARBON DIOXIDE 25.9 MMOL/L (24-32); eGFR 14 ML/MIN
--- NOTE | 2018-05-31 06:29 | NUR ---
report given to rec rn plan of care reviewed
[2018-05-31] MEDS: insulin regular, human inj. 100 UNITS in normal saline 100ml IV IV SCH ×2 (06:41)
--- NOTE | 2018-05-31 06:45 | NUR ---
Patient in room CICU 2008. I have received report from Antonella and had the opportunity to ask questions and assume patient care.
[2018-05-31] MEDS: pantoprazole 40mg Tablet.DR PO SCH (07:30)
[2018-05-31] MEDS: atorvastatin 10mg tablet PO SCH (07:51)
[2018-05-31] MEDS: pantoprazole 40 MG vial IV SCH (07:51)
[2018-05-31] MEDS: lactobacillus rhamnosus 10,000 MMU CELLS/CAPSULE PO SCH ×2 (07:51→21:46)
[2018-05-31] MEDS: docusate sodium 100mg/10ml UD cup PO SCH ×2 (07:51→20:00)
[2018-05-31] MEDS: morphine 4 MG/ML inj SYRINge IV PRN ×3 (07:52→17:54)
[2018-05-31] MEDS: metoprolol tartrate 12.5mg (1/2 tablet) PO SCH ×2 (08:00→21:46)
[2018-05-31] MEDS: aspirin 325mg tablet, delayed-release (Ecotrin) PO SCH (08:00)
[2018-05-31 09:34] LABS: HEMATOCRIT 23.2 % (42.0-52.0); HEMOGLOBIN 7.9 g/dl (14.0-17.9); MEAN CORPUSCULAR HEMOGLOBIN 29.6 PG (27.0-31.0); MEAN CORPUSCULAR VOLUME 86.9 FL (78-98); MEAN PLATELET VOLUME 9.6 FL (7.4-10.4); PLATELET COUNT 113 X10'3 (140-440); RED BLOOD COUNT 2.67 X10'6 (4.70-6.10); RED CELL DISTRIBUTION WIDTH 13.7 % (11.5-14.5); WHITE BLOOD COUNT 14.7 X10'3 (4.5-11.0)
[2018-05-31 09:42] LABS: ALANINE AMINOTRANSFERASE 19 U/L (12-78); ALBUMIN/GLOBULIN RATIO 1.1 (1.1-1.5); ALKALINE PHOSPHATASE 39 IU/L (46-116); ANION GAP 12 (8-16); ASPARTATE AMINO TRANSFERASE 45 U/L (10-37); BILIRUBIN,TOTAL 0.5 MG/DL (0.1-1.0); BLOOD UREA NITROGEN 83 MG/DL (7-18); BUN/CREATININE RATIO 20.5 (5.4-32.0); CALCIUM 7.5 MG/DL (8.5-10.1); CHLORIDE 109 MMOL/L (99-107); CREATININE 4.04 MG/DL (0.60-1.10); GLUCOSE 105 MG/DL (70-104); SODIUM 146 MMOL/L (135-145); TOTAL PROTEIN 5.8 G/DL (6.4-8.2); eGFR 16 ML/MIN
[2018-05-31] MEDS ORDERED: potassium Cl 20mEq/100mL bag 100 ML IV PRN ×2 (09:50→14:30)
--- NOTE | 2018-05-31 09:56 | NUR ---
0830 Dr Vogt rounds- resume cardizem at 10mg/hr, call if hemoglobin less than 8, OK for aspirin but administer rectally, Only replace K if less than 3.5, possible bronch today. 0956- Hemoglobin 7.9-transfuse 1unity of blood; had turned down cardizem for bp 80's over 30's, did MD want levo to maintain BP or titrate down cardizem. order is to transfuse unit of blood.
[2018-05-31] MEDS: aspirin 300mg supp.rect RC SCH (10:13)
--- NOTE | 2018-05-31 12:35 | NUR ---
1200- Dr Vogt concurs with BARBARA Yanez to hold lasix gtt at this time. Bronch for this afternoon on hold. Current FIO2 at 85%, recheck ABG this afternoon.
[2018-05-31 14:41] LABS: ABG BASE EXCESS -1.8 mmol/L (-2.0-3.0); ABG HCO3 22.5 mmol/L (22.0-26.0); ABG OXYGEN SATURATION 92.8 % (95-98); ABG PCO2 (T) 37.1 mmHg (35.0-48.0); ABG PH (T) 7.403 (7.350-7.450); ABG PO2 (T) 71.9 mmHg (83-108); FCOHb 0.2 % (0.5-1.5); FO2Hb 92.6 % (94-100); MINUTE VOLUME 12 L/min; PATIENT TEMPERATURE 37.5; PEEP 15 cm H2O; RESPIRATORY RATE 20 b/min; RESPIRATORY RATE (OBSERVED) 20 b/min; TIDAL VOLUME 550 mL; TOTAL HEMOGLOBIN 9.1 G/dl (14.0-18.0)
--- NOTE | 2018-05-31 15:20 | NUR ---
Dr Vogt notified of ABG results-Ok with FIO2 at 85%, ok to change accu check to q 6hour, dc insulin gtt. Plan for tube feed tomorrow
[2018-05-31] MEDS: diltiazem-D5W 125mg/125ml 125 ML IV SCH ×2 (17:15→21:47)
--- NOTE | 2018-05-31 18:07 | NUR ---
1800 Dr Vogt rounded- Continue to attempt to wean FIO2, when FIO2 weaned to 50% then we will wean down the PEEP.
--- NOTE | 2018-05-31 18:55 | NUR ---
I have received report and assumed care of pt, pt resting in bed family at bedside. both mediastinal chest tubes have clots in them but able to drain around the clots. pt remains in Afib but at a controlled rate Cardizem drip in place for rate and rhythm control
[2018-06-01] VITALS (24 sets, daily range): BP systolic 106–173; BP diastolic 19–82
[2018-06-01] MEDS: mineral oil/petrolatum ophthal oint EACHEYE SCH ×4 (02:00→20:40)
[2018-06-01] MEDS: dexmedetomidin/NS 400mcg/100ml 100 ML IV SCH ×4 (02:21→20:30)
[2018-06-01 03:40] LABS: ABG BASE EXCESS 0.1 mmol/L (-2.0-3.0); ABG HCO3 24.1 mmol/L (22.0-26.0); ABG OXYGEN SATURATION 92.8 % (95-98); ABG PCO2 (T) 37.4 mmHg (35.0-48.0); ABG PO2 (T) 74.8 mmHg (83-108); FCOHb 0.1 % (0.5-1.5); FMetHb 0.2 % (0.3-1.12); FO2Hb 92.5 % (94-100); MINUTE VOLUME 13 L/min; PATIENT TEMPERATURE 37.5; PEEP 15 cm H2O; RESPIRATORY RATE 20 b/min; RESPIRATORY RATE (OBSERVED) 22 b/min; TIDAL VOLUME 550 mL; TOTAL HEMOGLOBIN 9.4 G/dl (14.0-18.0)
[2018-06-01 04:27] LABS: BASOPHILS % (AUTO) 0.3 % (0-1); EOSINOPHILS # (AUTO) 0.1 X10'3 (0-0.9); EOSINOPHILS % (AUTO) 0.7 % (0-6); HEMOGLOBIN 8.6 g/dl (14.0-17.9); LYMPHOCYTES # (AUTO) 1.4 X10'3 (1.1-4.8); LYMPHOCYTES % (AUTO) 9.6 % (21-51); MEAN CORPUSCULAR HGB CONC 34.3 % (33.0-36.5); MEAN CORPUSCULAR VOLUME 87.6 FL (78-98); MONOCYTES # (AUTO) 1.5 X10'3 (0-0.9); NEUTROPHILS # (AUTO) 11.6 X10'3 (1.8-7.7); NEUTROPHILS % (AUTO) 79.4 % (42-75); PLATELET COUNT 136 X10'3 (140-440); RED BLOOD COUNT 2.86 X10'6 (4.70-6.10); RED CELL DISTRIBUTION WIDTH 14.1 % (11.5-14.5); WHITE BLOOD COUNT 14.7 X10'3 (4.5-11.0)
[2018-06-01 04:35] LABS: ALBUMIN 2.9 G/DL (3.4-5.0); ANION GAP 12 (8-16); BLOOD UREA NITROGEN 84 MG/DL (7-18); BUN/CREATININE RATIO 27.5 (5.4-32.0); CALCIUM 7.7 MG/DL (8.5-10.1); CHLORIDE 111 MMOL/L (99-107); CREATININE 3.06 MG/DL (0.60-1.10); GLUCOSE 116 MG/DL (70-104); MAGNESIUM 2.9 MG/DL (1.5-2.4); PHOSPHORUS 5.6 MG/DL (2.3-4.5); POTASSIUM 3.9 MMOL/L (3.5-5.1); SODIUM 148 MMOL/L (135-145); TOTAL CARBON DIOXIDE 25.2 MMOL/L (24-32); eGFR 22 ML/MIN
[2018-06-01] MEDS: pantoprazole 40mg Tablet.DR PO SCH (07:30)
[2018-06-01] MEDS: aspirin 300mg supp.rect RC SCH (07:33)
[2018-06-01] MEDS: pantoprazole 40 MG vial IV SCH (07:33)
[2018-06-01] MEDS: lactobacillus rhamnosus 10,000 MMU CELLS/CAPSULE PO SCH ×2 (07:33→20:40)
[2018-06-01] MEDS: atorvastatin 10mg tablet PO SCH (07:34)
[2018-06-01] MEDS: docusate sodium 100mg/10ml UD cup PO SCH ×2 (07:34→20:40)
[2018-06-01] MEDS: metoprolol tartrate 12.5mg (1/2 tablet) PO SCH ×2 (07:35→20:41)
[2018-06-01] MEDS: epoetin 20,000 units/ml inj SQ SCH (10:47)
[2018-06-01] MEDS: furosemide inj 100 ML IV SCH (11:50)
--- NOTE | 2018-06-01 12:34 | NUR ---
Initial: Pt intubated s/p urgent aortic dissection w/ R pleural effusion noted per MD note. R CT 315ml output. OG in place w/ TF initiation pending surgeon approval per chief cardiopulmonary technologist; day 3 post-op w/ no nutrition. LBM 05/29. TF recs below for pt intubation needs. Rec: 1. IF TF per MD; Vital HP at 110ml/hr goal 2. IF TF; prealbumin Q /, daily wts 3. initiate nutrition support given day 4 post-op and intubated 4. upon extubation; advance diet per MD to heart healthy Addendum: 06/01/18 at [address] Amended: Links added.
--- NOTE | 2018-06-01 13:09 | NUR ---
TF Consult: TF to start today per surgeon; will monitor for tolerance. Recs below. Initial: Pt intubated s/p urgent aortic dissection w/ R pleural effusion noted per MD note. R CT 315ml output. OG in place w/ TF initiation pending surgeon approval per tourist cabin keeper; day 3 post-op w/ no nutrition. LBM 05/29. TF recs below for pt intubation needs. Rec: 1. OGTF per surgeon using Vital HP at 110ml/hr goal; to provide 2640ml fluid, 2640kcals, 2218ml free water, and 231g protein. Initiate at 20ml/hr and advance 20ml Q8 to goal as tolerated. 2. water flush 150ml Q4 3. prealbumin Q /, daily wts 4. monitor for signs of refeedig syndrome 5. upon extubation; advance diet per MD to heart healthy Addendum: 06/01/18 at [address] Amended: Links added.
[2018-06-01] MEDS: propofol 1000mg/100ml bottle 100 ML IV PRN ×3 (14:25→23:39)
[2018-06-01] MEDS: insulin regular, human inj. 100 UNITS in normal saline 100ml IV IV SCH ×2 (16:01)
[2018-06-01 16:21] LABS: ABG BASE EXCESS 1.9 mmol/L (-2.0-3.0); ABG OXYGEN SATURATION 93.9 % (95-98); ABG PCO2 (T) 39.7 mmHg (35.0-48.0); ABG PH (T) 7.436 (7.350-7.450); FCOHb 0.1 % (0.5-1.5); FMetHb 0.1 % (0.3-1.12); FO2Hb 93.7 % (94-100); MINUTE VOLUME 14 L/min; PATIENT TEMPERATURE 37.6; PEEP 15 cm H2O; RESPIRATORY RATE 20 b/min; RESPIRATORY RATE (OBSERVED) 22 b/min; TIDAL VOLUME 550 mL; TOTAL HEMOGLOBIN 9.8 G/dl (14.0-18.0)
[2018-06-01] MEDS: diltiazem-D5W 125mg/125ml 125 ML IV SCH (16:35)
--- NOTE | 2018-06-01 16:58 | NUR ---
Pt vent settings currently on 50% FIO2 and 15 peep. ABG done and looks normal. PEEP to wean on next shift.
[2018-06-01] MEDS: heparin, porcine 5000 units/ml vial SQ SCH (20:41)
[2018-06-02] VITALS (24 sets, daily range): BP systolic 109–173; BP diastolic 51–89
[2018-06-02] MEDS: dexmedetomidin/NS 400mcg/100ml 100 ML IV SCH ×3 (01:19→08:41)
[2018-06-02 02:55] LABS: BASOPHILS % (AUTO) 0.2 % (0-1); EOSINOPHILS # (AUTO) 0.1 X10'3 (0-0.9); EOSINOPHILS % (AUTO) 0.9 % (0-6); HEMATOCRIT 25.7 % (42.0-52.0); HEMOGLOBIN 8.8 g/dl (14.0-17.9); LYMPHOCYTES # (AUTO) 1.5 X10'3 (1.1-4.8); LYMPHOCYTES % (AUTO) 10.5 % (21-51); MEAN CORPUSCULAR HEMOGLOBIN 30.2 PG (27.0-31.0); MEAN CORPUSCULAR HGB CONC 34.1 % (33.0-36.5); MEAN CORPUSCULAR VOLUME 88.4 FL (78-98); MEAN PLATELET VOLUME 10.1 FL (7.4-10.4); MONOCYTES # (AUTO) 1.4 X10'3 (0-0.9); MONOCYTES % (AUTO) 10.4 % (2-12); NEUTROPHILS # (AUTO) 10.9 X10'3 (1.8-7.7); PLATELET COUNT 151 X10'3 (140-440); RED BLOOD COUNT 2.91 X10'6 (4.70-6.10); RED CELL DISTRIBUTION WIDTH 14.2 % (11.5-14.5); WHITE BLOOD COUNT 13.9 X10'3 (4.5-11.0)
[2018-06-02 02:59] LABS: ALANINE AMINOTRANSFERASE 23 U/L (12-78); ALBUMIN 2.7 G/DL (3.4-5.0); ALBUMIN/GLOBULIN RATIO 0.8 (1.1-1.5); ALKALINE PHOSPHATASE 47 IU/L (46-116); ANION GAP 12 (8-16); ASPARTATE AMINO TRANSFERASE 33 U/L (10-37); BILIRUBIN,TOTAL 0.8 MG/DL (0.1-1.0); BLOOD UREA NITROGEN 74 MG/DL (7-18); BUN/CREATININE RATIO 34.4 (5.4-32.0); CALCIUM 7.8 MG/DL (8.5-10.1); CHLORIDE 114 MMOL/L (99-107); CREATININE 2.15 MG/DL (0.60-1.10); GLUCOSE 131 MG/DL (70-104); PHOSPHORUS 3.5 MG/DL (2.3-4.5); POTASSIUM 3.8 MMOL/L (3.5-5.1); PREALBUMIN 17.4 MG/DL (19-36); SODIUM 151 MMOL/L (135-145); TOTAL CARBON DIOXIDE 25.2 MMOL/L (24-32); TOTAL PROTEIN 6.1 G/DL (6.4-8.2); eGFR 33 ML/MIN
[2018-06-02] MEDS: mineral oil/petrolatum ophthal oint EACHEYE SCH ×4 (03:08→19:41)
[2018-06-02 03:16] LABS: ABG BASE EXCESS -2.4 mmol/L (-2.0-3.0); ABG HCO3 20.8 mmol/L (22.0-26.0); ABG OXYGEN SATURATION 92.8 % (95-98); ABG PH (T) 7.458 (7.350-7.450); ABG PO2 (T) 75.3 mmHg (83-108); FCOHb 0.2 % (0.5-1.5); FMetHb 0.2 % (0.3-1.12); FO2Hb 92.4 % (94-100); MINUTE VOLUME 12 L/min; PATIENT TEMPERATURE 37.1; PEEP 7 cm H2O; RESPIRATORY RATE 20 b/min; RESPIRATORY RATE (OBSERVED) 20 b/min; TIDAL VOLUME 550 mL
--- NOTE | 2018-06-02 06:30 | NUR ---
Patient in room CICU 2008. I have received report from SAVANNA Grady and had the opportunity to ask questions and assume patient care.
[2018-06-02] MEDS ORDERED: furosemide 40mg/4ml inj IV ONE (08:35)
[2018-06-02] MEDS: lactobacillus rhamnosus 10,000 MMU CELLS/CAPSULE PO SCH ×2 (08:42→20:45)
[2018-06-02] MEDS: docusate sodium 100mg/10ml UD cup PO SCH ×2 (08:43→20:45)
[2018-06-02] MEDS: aspirin 300mg supp.rect RC SCH (08:43)
[2018-06-02] MEDS: atorvastatin 10mg tablet PO SCH (08:43)
[2018-06-02] MEDS: metoprolol tartrate 12.5mg (1/2 tablet) PO SCH (08:43)
[2018-06-02] MEDS: heparin, porcine 5000 units/ml vial SQ SCH ×2 (08:44→20:43)
[2018-06-02] MEDS: pantoprazole 40 MG vial IV SCH (08:44)
[2018-06-02] MEDS: sodium chloride 0.45% 1,000 ML IV SCH (08:53)
[2018-06-02] MEDS: potassium Cl 20mEq/100mL bag 100 ML IV PRN (08:57)
[2018-06-02 09:40] LABS: ABG BASE EXCESS 1.6 mmol/L (-2.0-3.0); ABG HCO3 25.3 mmol/L (22.0-26.0); ABG OXYGEN SATURATION 96.1 % (95-98); ABG PCO2 (T) 36.9 mmHg (35.0-48.0); ABG PH (T) 7.456 (7.350-7.450); ABG PO2 (T) 91.8 mmHg (83-108); FCOHb 0.2 % (0.5-1.5); FMetHb 0.1 % (0.3-1.12); FO2Hb 95.8 % (94-100); MINUTE VOLUME 12 L/min; PATIENT TEMPERATURE 37.5; PEEP 5 cm H2O; TOTAL HEMOGLOBIN 9.2 G/dl (14.0-18.0)
[2018-06-02] MEDS: propofol 1000mg/100ml bottle 100 ML IV PRN ×2 (10:01→10:03)
[2018-06-02] MEDS: amiodarone/D5 360MG/200ML BAG 200 ML IV SCH (10:03)
--- NOTE | 2018-06-02 11:37 | NUR ---
pt is awake and alert, oriented, VSS. extubated with RT at bedside at 0945. 4L NC applied and in use, no signs of resp distress. ART line and CVL addressed with Williams FAM. will discuss with Dr. Vogt, Dr. Easton arrived on unit and assessed pt, updated on pt condition. CTs patent, draining serosang drainage.
--- NOTE | 2018-06-02 16:46 | NUR ---
ART line and CVL removed under aseptic technique. pressure held for 15min, pressure dressing applied and in use, pt tolerated procedure well.
[2018-06-02] MEDS: hydrALAZINE 20mg/ml inj. IV PRN (17:05)
[2018-06-02] MEDS: diltiazem-D5W 125mg/125ml 125 ML IV SCH (17:10)
[2018-06-02] MEDS: HYDROcodone/acetaminophen 10/325mg tab PO PRN ×2 (17:37→22:21)
--- NOTE | 2018-06-02 18:47 | NUR ---
Problems reprioritized. Patient report given, questions answered & plan of care reviewed with SAVANNA Espinoza.
--- NOTE | 2018-06-02 18:50 | NUR ---
Patient in room CICU 2008. I have received report from SAVANNA Muñoz and had the opportunity to ask questions and assume patient care.
[2018-06-02] MEDS ORDERED: metoprolol tartrate 25mg tablet PO SCH (20:00)
[2018-06-02] MEDS: metoprolol tartrate 50mg tablet PO SCH (20:45)
[2018-06-03] VITALS (20 sets, daily range): BP systolic 108–175; BP diastolic 37–89
[2018-06-03] MEDS: mineral oil/petrolatum ophthal oint EACHEYE SCH ×3 (02:00→12:24)
[2018-06-03] MEDS: HYDROcodone/acetaminophen 10/325mg tab PO PRN ×3 (02:24→20:11)
--- NOTE | 2018-06-03 03:00 | NUR ---
Pt very uncomfortable throughout the night, frequent repositioning to aid in comfort as well as pain medication. Pt tolerating ice chips and applesauce with meds well. Encouraged IS and flutter valve hourly while awake.
[2018-06-03 03:18] LABS: BASOPHILS % (AUTO) 0.2 % (0-1); EOSINOPHILS # (AUTO) 0.4 X10'3 (0-0.9); EOSINOPHILS % (AUTO) 2.1 % (0-6); HEMATOCRIT 27.5 % (42.0-52.0); HEMOGLOBIN 9.3 g/dl (14.0-17.9); LYMPHOCYTES # (AUTO) 1.5 X10'3 (1.1-4.8); LYMPHOCYTES % (AUTO) 7.8 % (21-51); MEAN CORPUSCULAR HGB CONC 33.7 % (33.0-36.5); MEAN CORPUSCULAR VOLUME 89.1 FL (78-98); MEAN PLATELET VOLUME 9.6 FL (7.4-10.4); MONOCYTES # (AUTO) 1.9 X10'3 (0-0.9); MONOCYTES % (AUTO) 9.9 % (2-12); NEUTROPHILS # (AUTO) 15.8 X10'3 (1.8-7.7); PLATELET COUNT 196 X10'3 (140-440); RED BLOOD COUNT 3.08 X10'6 (4.70-6.10); RED CELL DISTRIBUTION WIDTH 14.6 % (11.5-14.5); WHITE BLOOD COUNT 19.7 X10'3 (4.5-11.0)
[2018-06-03 03:39] LABS: ALANINE AMINOTRANSFERASE 33 U/L (12-78); ALBUMIN 2.9 G/DL (3.4-5.0); ALBUMIN/GLOBULIN RATIO 0.8 (1.1-1.5); ALKALINE PHOSPHATASE 57 IU/L (46-116); ANION GAP 9 (8-16); ASPARTATE AMINO TRANSFERASE 46 U/L (10-37); BILIRUBIN,TOTAL 1.1 MG/DL (0.1-1.0); BLOOD UREA NITROGEN 50 MG/DL (7-18); BUN/CREATININE RATIO 28.2 (5.4-32.0); CALCIUM 7.9 MG/DL (8.5-10.1); CHLORIDE 117 MMOL/L (99-107); CREATININE 1.77 MG/DL (0.60-1.10); GLUCOSE 121 MG/DL (70-104); MAGNESIUM 2.7 MG/DL (1.5-2.4); PHOSPHORUS 3.3 MG/DL (2.3-4.5); POTASSIUM 3.9 MMOL/L (3.5-5.1); SODIUM 154 MMOL/L (135-145); TOTAL CARBON DIOXIDE 27.7 MMOL/L (24-32); TOTAL PROTEIN 6.6 G/DL (6.4-8.2); eGFR 41 ML/MIN
[2018-06-03 03:50] LABS: TOTAL CELLS COUNTED 100
[2018-06-03 03:52] LABS: PLATELET ESTIMATE NORMAL; POLYCHROMASIA FEW
[2018-06-03 03:53] LABS: TOXIC GRANULATION 2+; TOXIC VACUOLATION 2+
[2018-06-03] MEDS: potassium Cl 20mEq/100mL bag 100 ML IV PRN ×2 (04:20→07:00)
--- NOTE | 2018-06-03 06:30 | NUR ---
Assumed care of pt.
--- NOTE | 2018-06-03 06:51 | NUR ---
Problems reprioritized. Patient report given, questions answered & plan of care reviewed with SAVANNA Gilliland.
--- NOTE | 2018-06-03 08:40 | NUR ---
CT pulled by Surgeon. Gauze with tegaderm placed to mediastinal location; petroleum gauze, gauze and abd with pressure dressing tape placed to previous R pleural tube site. Pt stable.
[2018-06-03] MEDS: atorvastatin 10mg tablet PO SCH (08:49)
[2018-06-03] MEDS: aspirin 325mg tablet PO SCH (08:49)
[2018-06-03] MEDS: docusate sodium 100mg/10ml UD cup PO SCH ×2 (08:49→20:09)
[2018-06-03] MEDS: pantoprazole 40 MG vial IV SCH (08:49)
[2018-06-03] MEDS: metoprolol tartrate 50mg tablet PO SCH ×2 (08:50→20:10)
[2018-06-03] MEDS: lactobacillus rhamnosus 10,000 MMU CELLS/CAPSULE PO SCH (08:51)
[2018-06-03] MEDS: heparin, porcine 5000 units/ml vial SQ SCH ×2 (08:51→20:10)
[2018-06-03] MEDS: epoetin 20,000 units/ml inj SQ SCH (09:24)
[2018-06-03] MEDS ORDERED: magnesium 2GM in 50ml NS 50 ML IV PRN (14:05)
[2018-06-03] MEDS ORDERED: potassium Cl 40MEQ/NS 500ml 500 ML IV PRN ×4 (14:05)
[2018-06-03] MEDS ORDERED: magnesium Cl slow-release 64mg tablet PO PRN (14:05)
[2018-06-03] MEDS ORDERED: potassium Cl 20 mEq SR tablet PO PRN ×4 (14:05)
[2018-06-03] MEDS ORDERED: magnesium 4gm in 100ml NS 100 ML IV PRN (14:05)
--- NOTE | 2018-06-03 16:24 | NUR ---
Report given to ROYCE Rosenberg RN.
--- NOTE | 2018-06-03 17:06 | NUR ---
Pt tx to ROYCE; stable upon tx.
--- NOTE | 2018-06-03 17:25 | NUR ---
Patient arrived to room 316 in stable condition via wheelchair. He immediately wanted to use the commode, which was achieved with two person transfer. Transferred again from commode to bed. Oriented to room and call light. Call light in reach.
[2018-06-03] MEDS: potassium Cl 20 mEq SR tablet PO SCH (18:39)
[2018-06-03] MEDS: magnesium Cl slow-release 64mg tablet PO SCH ×2 (18:40)
--- NOTE | 2018-06-03 18:41 | NUR ---
Problems reprioritized. Patient report given, questions answered & plan of care reviewed with Davi CORRALES.
[2018-06-03] MEDS: hydrALAZINE 20mg/ml inj. IV PRN (18:52)
[2018-06-03] MEDS ORDERED: potassium Cl 20 mEq SR tablet PO SCH (20:00)
[2018-06-04] MEDS: hydrALAZINE 20mg/ml inj. IV PRN ×2 (00:06→15:19)
[2018-06-04] MEDS: HYDROcodone/acetaminophen 10/325mg tab PO PRN (01:04)
[2018-06-04 03:00] VITALS: BP 158/67
[2018-06-04 06:00] VITALS: BP 143/95
--- NOTE | 2018-06-04 06:00 | NUR ---
0600 strip Addendum: 06/04/18 at 1627 by Adriane Louise RN Amended: Links added.
--- NOTE | 2018-06-04 06:10 | NUR ---
New onset aflutter 130-140s HR, stable BP (148/116). Asymptomatic. Called CRISTEL Kramer who ordered 10mg Cardizem IV over 10 minutes bolus and start Cardizem gtt 10mg/hr afterwards.
--- NOTE | 2018-06-04 06:20 | NUR ---
Patient in room MED 316. I have received report from SAVANNA CARDOZA, and had the opportunity to ask questions and assume patient care.
[2018-06-04] MEDS ORDERED: diltiazem 5mg/ml 5ml inj. IV ONE (06:25)
--- NOTE | 2018-06-04 06:29 | NUR ---
Problems reprioritized. Patient report given, questions answered & plan of care reviewed with SAVANNA Forrest and SAVANNA Luica.
[2018-06-04] MEDS ORDERED: diltiazem-D5W 125mg/125ml 125 ML IV SCH (07:00)
[2018-06-04] MEDS: atorvastatin 10mg tablet PO SCH (07:21)
[2018-06-04] MEDS: heparin, porcine 5000 units/ml vial SQ SCH ×2 (07:21→20:29)
[2018-06-04] MEDS: docusate sodium 100mg/10ml UD cup PO SCH ×2 (07:22→20:30)
[2018-06-04] MEDS: aspirin 325mg tablet PO SCH (07:22)
[2018-06-04] MEDS: metoprolol tartrate 50mg tablet PO SCH ×2 (07:23→20:30)
[2018-06-04] MEDS: pantoprazole 40 MG vial IV SCH (07:23)
[2018-06-04] MEDS: potassium Cl 20 mEq SR tablet PO SCH ×2 (08:00→20:00)
[2018-06-04] MEDS: K and/or MAG REPLACEMENT MC SCH ×2 (08:00)
[2018-06-04] MEDS: magnesium Cl slow-release 64mg tablet PO SCH ×4 (08:00→20:00)
[2018-06-04 08:01] LABS: BASOPHILS % (AUTO) 0.2 % (0-1); EOSINOPHILS # (AUTO) 0.7 X10'3 (0-0.9); EOSINOPHILS % (AUTO) 3.6 % (0-6); HEMATOCRIT 28.1 % (42.0-52.0); HEMOGLOBIN 9.4 g/dl (14.0-17.9); LYMPHOCYTES % (AUTO) 10.6 % (21-51); MEAN CORPUSCULAR HGB CONC 33.5 g/dL (33.0-36.5); MEAN CORPUSCULAR VOLUME 89.6 FL (78-98); MEAN PLATELET VOLUME 9.2 FL (7.4-10.4); MONOCYTES # (AUTO) 1.9 X10'3 (0-0.9); MONOCYTES % (AUTO) 10.3 % (2-12); NEUTROPHILS # (AUTO) 14.1 X10'3 (1.8-7.7); NEUTROPHILS % (AUTO) 75.3 % (42-75); PLATELET COUNT 233 X10'3 (140-440); RED BLOOD COUNT 3.14 X10'6 (4.70-6.10); RED CELL DISTRIBUTION WIDTH 14.3 % (11.5-14.5); WHITE BLOOD COUNT 18.8 X10'3 (4.5-11.0)
[2018-06-04 08:18] LABS: ALBUMIN 2.9 G/DL (3.4-5.0); ANION GAP 9 (8-16); BLOOD UREA NITROGEN 31 MG/DL (7-18); CHLORIDE 111 MMOL/L (99-107); CREATININE 1.41 MG/DL (0.60-1.10); GLUCOSE 101 MG/DL (70-104); MAGNESIUM 2.1 MG/DL (1.5-2.4); PHOSPHORUS 2.5 MG/DL (2.3-4.5); SODIUM 147 MMOL/L (135-145); TOTAL CARBON DIOXIDE 27.1 MMOL/L (24-32); eGFR 53 ML/MIN
[2018-06-04 08:19] LABS: CALCIUM 8.1 MG/DL (8.5-10.1)
[2018-06-04 08:51] LABS: TOTAL CELLS COUNTED 100
[2018-06-04 08:54] LABS: PLATELET ESTIMATE NORMAL; POLYCHROMASIA FEW
[2018-06-04] MEDS ORDERED: magnesium 4gm in 100ml NS 100 ML IV ONE (09:30)
[2018-06-04 11:00] VITALS: BP 159/65
--- NOTE | 2018-06-04 11:29 | NUR ---
PAGED RADIOLOGY FOR CHEST X-RAY "Olivia PIZARRO IS UP IN WHEELCHAIR FOR CHEST X RAY. THANK YOU, JOYCE TREJO [phone]"
--- NOTE | 2018-06-04 11:38 | NUR ---
Pt extubated advanced to heart healthy diet PO 100% meals meeting needs. Pt/mother seen by MAURI for written/verbal CABG ed; RD contact information provided. Pt agrees to chocolate ensure pudding TIDWM and hot tea w/ sugar packet TID. MAURI d/w dietary. Rec: 1. continue heart healthy diet per MD 2. chocolate ensure pudding TIDWM 3. wt per rx Addendum: 06/04/18 at [address] Amended: Links added.
--- NOTE | 2018-06-04 12:30 | NUR ---
Thoravent and pacer wires removed By Dr. Vogt. patient tolerated procedure well. will keep patient bedrest x1 hour and monitor BP Q15 minutes on bedside monitor.
[2018-06-04] MEDS: diltiazem CD 120mg capsule (once-daily) PO SCH (13:37)
[2018-06-04 15:00] VITALS: BP 166/75
--- NOTE | 2018-06-04 18:00 | NUR ---
Patient in room MED 316. I have received report from Adriane and had the opportunity to ask questions and assume patient care.
--- NOTE | 2018-06-04 18:15 | NUR ---
Problems reprioritized. Patient report given, questions answered & plan of care reviewed with RAMONA Sparks RN.
[2018-06-04 19:00] VITALS: BP 142/62
[2018-06-04] MEDS ORDERED: diphenhydrAMINE 25mg capsule PO PRN (20:00)
[2018-06-04 23:00] VITALS: BP 132/59
[2018-06-05 05:16] LABS: ALBUMIN 2.9 G/DL (3.4-5.0); ANION GAP 7 (8-16); BLOOD UREA NITROGEN 30 MG/DL (7-18); BUN/CREATININE RATIO 21.1 (5.4-32.0); CHLORIDE 108 MMOL/L (99-107); CREATININE 1.42 MG/DL (0.60-1.10); GLUCOSE 103 MG/DL (70-104); MAGNESIUM 2.4 MG/DL (1.5-2.4); PHOSPHORUS 2.6 MG/DL (2.3-4.5); POTASSIUM 4.1 MMOL/L (3.5-5.1); SODIUM 142 MMOL/L (135-145); TOTAL CARBON DIOXIDE 26.9 MMOL/L (24-32); eGFR 53 ML/MIN
[2018-06-05 05:20] LABS: HEMATOCRIT 26.8 % (42.0-52.0); MEAN CORPUSCULAR HEMOGLOBIN 29.9 PG (27.0-31.0); MEAN CORPUSCULAR HGB CONC 33.6 g/dL (33.0-36.5); MEAN PLATELET VOLUME 9.6 FL (7.4-10.4); PLATELET COUNT 229 X10'3 (140-440); RED BLOOD COUNT 3.01 X10'6 (4.70-6.10); RED CELL DISTRIBUTION WIDTH 14.2 % (11.5-14.5); WHITE BLOOD COUNT 17.1 X10'3 (4.5-11.0)
[2018-06-05 05:40] LABS: TOTAL CELLS COUNTED 100
[2018-06-05 05:41] LABS: PLATELET ESTIMATE NORMAL; POLYCHROMASIA 1+
[2018-06-05 06:00] VITALS: BP 153/76
--- NOTE | 2018-06-05 06:23 | NUR ---
Patient in room MED 316. I have received report from Kristina CORRALES and had the opportunity to ask questions and assume patient care.
--- NOTE | 2018-06-05 06:25 | NUR ---
Problems reprioritized. Patient report given, questions answered & plan of care reviewed with Art RN.
[2018-06-05] MEDS: docusate sodium 100mg/10ml UD cup PO SCH (07:37)
[2018-06-05] MEDS: diltiazem CD 120mg capsule (once-daily) PO SCH (07:38)
[2018-06-05] MEDS: atorvastatin 10mg tablet PO SCH (07:38)
[2018-06-05 07:42] VITALS: BP_SYST 154
[2018-06-05] MEDS: metoprolol tartrate 50mg tablet PO SCH (07:42)
[2018-06-05] MEDS: heparin, porcine 5000 units/ml vial SQ SCH (07:43)
[2018-06-05] MEDS: pantoprazole 40 MG vial IV SCH (07:44)
[2018-06-05] MEDS: aspirin 325mg tablet PO SCH (07:51)
[2018-06-05] MEDS: magnesium Cl slow-release 64mg tablet PO SCH ×2 (08:00)
[2018-06-05] MEDS: K and/or MAG REPLACEMENT MC SCH ×2 (08:00)
[2018-06-05] MEDS: potassium Cl 20 mEq SR tablet PO SCH (08:00)
[2018-06-05] MEDS ORDERED: HYDR-3972 PO (09:34)
[2018-06-05] MEDS ORDERED: METO50TA16 PO (09:34)
[2018-06-05] MEDS ORDERED: ATOR10TA PO (09:34)
[2018-06-05] MEDS ORDERED: CARCD120C PO (09:34)
[2018-06-05] MEDS ORDERED: ASPI-1 PO (09:34)
[2018-06-05] MEDS ORDERED: DOCU50LI22 PO (09:34)
--- NOTE | 2018-06-05 14:50 | NUR ---
discharge education provided to pt and pt's family. PICC d/c'd; tip intact pt tolerated procedure well. pt transported via wheel chair to private vehicle with all belongings.
== END 2018-06-05 14:50 | disposition home health service (06) | DRG 220 ==
LOC: ER 09:31 → PACU 10:07 → CICU 2S 15:33 → MED 3N 06-03 17:00
PROVIDERS: ADMIT Thoracic Surgery (Cardiothoracic Vascular Surgery); ATTEND Thoracic Surgery (Cardiothoracic Vascular Surgery)
PROC: 02RX0JZ Replacement of Thoracic Aorta, Ascending/Arch with Synthetic Substitute, Open Approach (ICD-10-PCS; 2018-05-28)
PROC: 30233R1 Transfusion of Nonautologous Platelets into Peripheral Vein, Percutaneous Approach (ICD-10-PCS; 2018-05-28)
PROC: 02HV33Z Insertion of Infusion Device into Superior Vena Cava, Percutaneous Approach (ICD-10-PCS; 2018-05-28)
PROC: 5A1955Z Respiratory Ventilation, Greater than 96 Consecutive Hours (ICD-10-PCS; 2018-05-28)
PROC: 0BH17EZ Insertion of Endotracheal Airway into Trachea, Via Natural or Artificial Opening (ICD-10-PCS; 2018-05-28)
PROC: 30233M1 Transfusion of Nonautologous Plasma Cryoprecipitate into Peripheral Vein, Percutaneous Approach (ICD-10-PCS; principal; 2018-05-28 10:32)
PROC: 0B978ZZ Drainage of Left Main Bronchus, Via Natural or Artificial Opening Endoscopic (ICD-10-PCS; 2018-05-30)
PROC: 0B938ZZ Drainage of Right Main Bronchus, Via Natural or Artificial Opening Endoscopic (ICD-10-PCS; 2018-05-30)
PROC: 0W9930Z Drainage of Right Pleural Cavity with Drainage Device, Percutaneous Approach (ICD-10-PCS; 2018-05-30)
PROC: 30233N1 Transfusion of Nonautologous Red Blood Cells into Peripheral Vein, Percutaneous Approach (ICD-10-PCS; 2018-05-31)
DX: I71.2 Thoracic aortic aneurysm, without rupture (principal); D62 Acute posthemorrhagic anemia; I16.1 Hypertensive emergency; J90 Pleural effusion, not elsewhere classified; J98.11 Atelectasis; N17.9 Acute kidney failure, unspecified; T17.890A Other foreign object in other parts of respiratory tract causing asphyxiation, initial encounter; Z99.11 Dependence on respirator [ventilator] status; E66.9 Obesity, unspecified; I11.9 Hypertensive heart disease without heart failure; I48.91 Unspecified atrial fibrillation; Z91.19 Patient's noncompliance with other medical treatment and regimen; Z87.442 Personal history of urinary calculi
CPT/HCPCS: 31645; 36573; 93306; 93312; 93325; 99291; Z7506; Z7508; 36415; 36600; 71045; 71046; 76937; 80048; 80053; 81001; 82330; 82435; 82570; 82803; 82947; 82948; 83735; 84100; 84132; 84134; 84295; 84300; 84484; 85018; 85025; 85027; 85347; 85384; 85610; 85730; 86885; 86900; 86901; 86920; 87070; 87088; 92616; 93005; 93975; 94002; 94003; 94667; 94668; 94760; 97110; 97116; 97162; 97530; A4344; A6257; A6449; A7048; C1751; C1768; C9113; G0378; J0282; J0360; J0690; J0885; J1250; J1644; J1940; J2060; J2270; J2704; J3010; J3370; J3475; J3480; J3490; J7030; J7060; J7120; P9012; P9016; P9035; P9045; Q0163

== ENCOUNTER 2018-06-26 08:20 | Day surgery (SDC) | payer BC ==
[2018-06-26] VITALS (9 sets, daily range): BP systolic 102–131; BP diastolic 53–74
[~2018-06-26] VITALS: Ht 182.9 cm; Wt 133.9 kg
[~2018-06-26 08:20] MED LIST: ASPI-1 PO; ATOR10TA PO; CARCD120C PO; FURO-149 PO; LIDOcaine 1% 30ml preserv. free vial SQ STA; METO50TA16 PO; POTA20TA19 PO
[2018-06-26] MEDS ORDERED: ASPI-10 PO (08:52)
[2018-06-26] MEDS ORDERED: CARV-50 PO (08:52)
[2018-06-26] MEDS ORDERED: DILT240C47 PO (08:52)
[2018-06-26] MEDS ORDERED: ATOR10TA87 PO (08:52)
--- NOTE | 2018-06-26 10:00 | NUR ---
NOTED SWELLING AT PROCEDURE SITE LEFT POSTERIOR CHEST, JAMIL ANTONIO LINE FISHER, CALLED IN TO OBSERVE, PRESSURE DRSG AND ICE APPLIED, PER JAMIL PT TO WAIT 1 HOUR BEFORE D/C IF PT SOB SHOULD REPEAT CXR.
--- NOTE | 2018-06-26 10:45 | NUR ---
REMOVED ICE, PRESSURE DRSING STILL IN PLACE, SWELLING STABLE, SLIGHTLY DECREASED.
--- NOTE | 2018-06-26 10:55 | NUR ---
PT STATES NOT SOB, JUST HAVING DIFFICULTY GETTING DEEP BREATH, AWAITING 2ND CXR.
[2018-06-26] MEDS ORDERED: DILT240C51 PO (20:08)
== END 2018-06-26 11:15 | disposition home or self-care (01) ==
LOC: SSTAY O 08:20
PROVIDERS: ATTEND Radiology Vascular & Interventional Radiology
DX: R18.8 Other ascites (principal); I10 Essential (primary) hypertension; Z87.442 Personal history of urinary calculi; Z98.890 Other specified postprocedural states; Z79.82 Long term (current) use of aspirin; Z79.899 Other long term (current) drug therapy
CPT/HCPCS: 32555; 71045; C1729; J3490

== ENCOUNTER 2018-06-26 16:06 | Inpatient (IN) | payer BC ==
[~2018-06-26] VITALS: Ht 182.9 cm; Wt 131.8 kg
[~2018-06-26 16:06] MED LIST changes: +ASPI-10 PO; +ATOR10TA87 PO; +CARV-50 PO; +DILT240C47 PO; -LIDOcaine 1% 30ml preserv. free vial SQ STA
[2018-06-26 17:19] LABS: BASOPHILS # (AUTO) 0.1 X10'3 (0-0.2); BASOPHILS % (AUTO) 0.9 % (0-1); EOSINOPHILS # (AUTO) 0.2 X10'3 (0-0.9); EOSINOPHILS % (AUTO) 2.3 % (0-6); HEMATOCRIT 28.1 % (42.0-52.0); HEMOGLOBIN 9.2 g/dl (14.0-17.9); LYMPHOCYTES # (AUTO) 1.6 X10'3 (1.1-4.8); LYMPHOCYTES % (AUTO) 14.5 % (21-51); MEAN CORPUSCULAR HEMOGLOBIN 27.7 PG (27.0-31.0); MEAN CORPUSCULAR HGB CONC 32.8 g/dL (33.0-36.5); MEAN CORPUSCULAR VOLUME 84.6 FL (78-98); MEAN PLATELET VOLUME 6.7 FL (7.4-10.4); MONOCYTES # (AUTO) 1.2 X10'3 (0-0.9); MONOCYTES % (AUTO) 10.8 % (2-12); NEUTROPHILS # (AUTO) 7.8 X10'3 (1.8-7.7); NEUTROPHILS % (AUTO) 71.5 % (42-75); PLATELET COUNT 448 X10'3 (140-440); RED BLOOD COUNT 3.32 X10'6 (4.70-6.10); WHITE BLOOD COUNT 10.9 X10'3 (4.5-11.0)
[2018-06-26 17:41] LABS: ALANINE AMINOTRANSFERASE 103 U/L (12-78); ALBUMIN 3.1 G/DL (3.4-5.0); ALBUMIN/GLOBULIN RATIO 0.6 (1.1-1.5); ALKALINE PHOSPHATASE 86 IU/L (46-116); ANION GAP 10 (8-16); ASPARTATE AMINO TRANSFERASE 48 U/L (10-37); BILIRUBIN,TOTAL 0.3 MG/DL (0.1-1.0); BLOOD UREA NITROGEN 22 MG/DL (7-18); BUN/CREATININE RATIO 13.3 (5.4-32.0); CALCIUM 8.9 MG/DL (8.5-10.1); CHLORIDE 99 MMOL/L (99-107); CREATININE 1.65 MG/DL (0.60-1.10); GLUCOSE 105 MG/DL (70-104); POTASSIUM 4.5 MMOL/L (3.5-5.1); SODIUM 139 MMOL/L (135-145); TOTAL CARBON DIOXIDE 29.6 MMOL/L (24-32); TOTAL PROTEIN 8.3 G/DL (6.4-8.2); eGFR 45 ML/MIN
[2018-06-26 17:48] LABS: INR 1.1 INR; PROTHROMBIN TIME 11.4 SECONDS (9.0-12.0)
[2018-06-26] MEDS ORDERED: HYDROcodone/acetaminophen 10/325mg tab PO ONE ×2 (19:05→19:10)
--- NOTE | 2018-06-26 19:06 | NUR ---
Discussed pt's pain with Dr Casas; new order for [place] 10-325 once ordered.
[2018-06-26] MEDS ORDERED: acetaminophen 325mg tablet PO PRN (19:35)
[2018-06-26] MEDS ORDERED: ondansetron/PF 4mg/2ml inj IV PRN (19:35)
[2018-06-26] MEDS ORDERED: mag hydrox/Alum hydrox/simeth 30ml oral suspension PO PRN (19:35)
[2018-06-26] MEDS ORDERED: morphine 4 MG/ML inj SYRINge IV PRN ×2 (19:35)
[2018-06-26] MEDS ORDERED: magnesium hydroxide 30ml (MOM) UD suspension PO PRN (19:35)
[2018-06-26] MEDS ORDERED: methylPREDNISolone sod succ/PF 40mg inj. IV ONE (20:00)
[2018-06-26] MEDS ORDERED: DILT240C51 PO (20:08)
[2018-06-26 21:00] VITALS: BP 136/78
[2018-06-26] MEDS ORDERED: carVEDilol 12.5mg tablet PO ONE (21:25)
[2018-06-26] MEDS: temazepam 15mg capsule PO PRN (21:59)
[2018-06-26 22:00] VITALS: BP 143/73
[2018-06-26] MEDS: HYDROcodone/acetaminophen 10/325mg tab PO PRN (23:19)
--- NOTE | 2018-06-27 03:04 | NUR ---
Reviewed and agree with SRN assessment findings.
[2018-06-27 03:11] VITALS: BP 115/78
[2018-06-27] MEDS: HYDROcodone/acetaminophen 10/325mg tab PO PRN (03:32)
--- NOTE | 2018-06-27 04:44 | NUR ---
patient had a 4 sec pause on tele. HR down in 30s. Went in room and woke patient. HR back up to 80s and VS taken. 122/74. Patient easily rousable. No c/o pain. Sats were in high 80s. up to 92 with deep breathing. Placed on NC for better oxygenation while sleeping. Called and notified MD baez pause. New order to DC Coreg.
[2018-06-27 06:00] VITALS: BP 149/82
--- NOTE | 2018-06-27 06:26 | NUR ---
Problems reprioritized. Patient report given, questions answered & plan of care reviewed with SAVANNA Canales.
[2018-06-27 06:54] LABS: BASOPHILS % (AUTO) 0.2 % (0-1); EOSINOPHILS % (AUTO) 0 % (0-6); HEMATOCRIT 26.5 % (42.0-52.0); HEMOGLOBIN 8.5 g/dl (14.0-17.9); LYMPHOCYTES # (AUTO) 0.8 X10'3 (1.1-4.8); LYMPHOCYTES % (AUTO) 7.5 % (21-51); MEAN CORPUSCULAR HEMOGLOBIN 27.4 PG (27.0-31.0); MEAN CORPUSCULAR HGB CONC 32.3 g/dL (33.0-36.5); MEAN PLATELET VOLUME 7.4 FL (7.4-10.4); MONOCYTES # (AUTO) 0.3 X10'3 (0-0.9); MONOCYTES % (AUTO) 2.4 % (2-12); NEUTROPHILS # (AUTO) 9.3 X10'3 (1.8-7.7); NEUTROPHILS % (AUTO) 89.9 % (42-75); PLATELET COUNT 394 X10'3 (140-440); RED BLOOD COUNT 3.11 X10'6 (4.70-6.10); WHITE BLOOD COUNT 10.3 X10'3 (4.5-11.0)
[2018-06-27 07:02] LABS: ALANINE AMINOTRANSFERASE 86 U/L (12-78); ALBUMIN 2.8 G/DL (3.4-5.0); ALBUMIN/GLOBULIN RATIO 0.6 (1.1-1.5); ALKALINE PHOSPHATASE 77 IU/L (46-116); ANION GAP 8 (8-16); ASPARTATE AMINO TRANSFERASE 29 U/L (10-37); BILIRUBIN,TOTAL 0.4 MG/DL (0.1-1.0); BLOOD UREA NITROGEN 20 MG/DL (7-18); BUN/CREATININE RATIO 15.2 (5.4-32.0); CALCIUM 8.6 MG/DL (8.5-10.1); CHLORIDE 100 MMOL/L (99-107); CREATININE 1.32 MG/DL (0.60-1.10); GLUCOSE 138 MG/DL (70-104); POTASSIUM 4.8 MMOL/L (3.5-5.1); SODIUM 137 MMOL/L (135-145); TOTAL CARBON DIOXIDE 28.9 MMOL/L (24-32); TOTAL PROTEIN 7.8 G/DL (6.4-8.2); eGFR 58 ML/MIN
[2018-06-27] MEDS: aspirin 325mg tablet PO SCH (07:19)
[2018-06-27] MEDS: atorvastatin 10mg tablet PO SCH (07:20)
[2018-06-27] MEDS: furosemide 40mg tablet PO SCH (07:20)
[2018-06-27] MEDS ORDERED: carVEDilol 12.5mg tablet PO SCH (08:00)
[2018-06-27] MEDS ORDERED: potassium Cl 20 mEq SR tablet PO SCH (08:00)
[2018-06-27] MEDS ORDERED: diltiazem CD 120mg capsule (once-daily) PO SCH (08:00)
[2018-06-27 11:00] VITALS: BP 135/61
[2018-06-27] MEDS: losartan 50mg tablet PO SCH (14:06)
[2018-06-27 15:00] VITALS: BP 110/62
--- NOTE | 2018-06-27 18:29 | NUR ---
Problems reprioritized. Patient report given, questions answered & plan of care reviewed with SAVANNA Silva.
--- NOTE | 2018-06-27 18:30 | NUR ---
Received report from Ally CORRALES pt is awake and alert finishing up dinner in no apaprent distress, call light and items of freq use within reach.
[2018-06-27 19:00] VITALS: BP 150/78
[2018-06-27] MEDS: temazepam 15mg capsule PO PRN (21:16)
[2018-06-27 22:45] VITALS: BP 148/64
--- NOTE | 2018-06-27 22:52 | NUR ---
Spoke with Dr. Head regarding pts 3,2,3,2 second pauses in heartbeat within a five minute time, informed him the pt had this last night and his coreg and cardizem were DC'd and losartan was started, no new orders at this time. B/P: 148/64, RR: 16, HR:83, T:98
[2018-06-28] VITALS (7 sets, daily range): BP systolic 129–151; BP diastolic 57–80
--- NOTE | 2018-06-28 00:09 | NUR ---
Informed Dr. Head of pts 3sec pause then 4 sec pause VS: 167/71. HR" 76, O2 Sat 93 RA, RR 16 Addendum: 06/28/18 at 0016 by Shira Clifford RN No willy orders
--- NOTE | 2018-06-28 03:29 | NUR ---
Informed Dr. Teran of pts 3sec then 2sec then 3sec pause in pts heart rate. No new orders
--- NOTE | 2018-06-28 04:59 | NUR ---
pt had 6sec pause in HR notified Dr. Head non ew orders, pts VS: HR:82, B/P:139/64, O2 sat: 92%
--- NOTE | 2018-06-28 05:17 | NUR ---
Adilene Ramirez stopped by and talked with pt, he is thinking automation test engineer is going to need to consult for possible pacemaker, Dr. Head ordered pt to be NPO ice chips ok
[2018-06-28 05:30] LABS: BASOPHILS # (AUTO) 0.1 X10'3 (0-0.2); BASOPHILS % (AUTO) 0.6 % (0-1); EOSINOPHILS # (AUTO) 0.2 X10'3 (0-0.9); EOSINOPHILS % (AUTO) 1.6 % (0-6); HEMATOCRIT 24.8 % (42.0-52.0); LYMPHOCYTES # (AUTO) 2.2 X10'3 (1.1-4.8); LYMPHOCYTES % (AUTO) 15.9 % (21-51); MEAN CORPUSCULAR HEMOGLOBIN 27.2 PG (27.0-31.0); MEAN CORPUSCULAR HGB CONC 32.2 g/dL (33.0-36.5); MEAN CORPUSCULAR VOLUME 84.7 FL (78-98); MEAN PLATELET VOLUME 7.7 FL (7.4-10.4); MONOCYTES # (AUTO) 1.5 X10'3 (0-0.9); MONOCYTES % (AUTO) 10.6 % (2-12); NEUTROPHILS # (AUTO) 9.8 X10'3 (1.8-7.7); NEUTROPHILS % (AUTO) 71.3 % (42-75); PLATELET COUNT 387 X10'3 (140-440); RED BLOOD COUNT 2.93 X10'6 (4.70-6.10); RED CELL DISTRIBUTION WIDTH 15.2 % (11.5-14.5); WHITE BLOOD COUNT 13.8 X10'3 (4.5-11.0)
[2018-06-28 06:20] LABS: ALANINE AMINOTRANSFERASE 74 U/L (12-78); ALBUMIN 2.7 G/DL (3.4-5.0); ALBUMIN/GLOBULIN RATIO 0.6 (1.1-1.5); ALKALINE PHOSPHATASE 69 IU/L (46-116); ANION GAP 8 (8-16); ASPARTATE AMINO TRANSFERASE 25 U/L (10-37); BILIRUBIN,TOTAL 0.3 MG/DL (0.1-1.0); BLOOD UREA NITROGEN 23 MG/DL (7-18); BUN/CREATININE RATIO 16.5 (5.4-32.0); CALCIUM 8.7 MG/DL (8.5-10.1); CHLORIDE 102 MMOL/L (99-107); CREATININE 1.39 MG/DL (0.60-1.10); GLUCOSE 100 MG/DL (70-104); SODIUM 139 MMOL/L (135-145); TOTAL CARBON DIOXIDE 28.6 MMOL/L (24-32); TOTAL PROTEIN 7.3 G/DL (6.4-8.2); eGFR 54 ML/MIN
--- NOTE | 2018-06-28 06:21 | NUR ---
Gave report to Herrera CORRALES pt awake and alert on RA, mother at [facility],
--- NOTE | 2018-06-28 06:24 | NUR ---
Patient in room PCU 3024. I have received report from SAVANNA SAEZ and had the opportunity to ask questions and assume patient care.
[2018-06-28] MEDS: atorvastatin 10mg tablet PO SCH (08:50)
[2018-06-28] MEDS: losartan 50mg tablet PO SCH (08:50)
[2018-06-28] MEDS: aspirin 325mg tablet PO SCH (08:50)
[2018-06-28] MEDS: furosemide 40mg tablet PO SCH (08:50)
[2018-06-28 09:15] LABS: BASOPHILS # (AUTO) 0.1 X10'3 (0-0.2); BASOPHILS % (AUTO) 0.6 % (0-1); EOSINOPHILS # (AUTO) 0.2 X10'3 (0-0.9); HEMATOCRIT 24.9 % (42.0-52.0); HEMOGLOBIN 8.3 g/dl (14.0-17.9); LYMPHOCYTES # (AUTO) 1.9 X10'3 (1.1-4.8); LYMPHOCYTES % (AUTO) 15.6 % (21-51); MEAN CORPUSCULAR HEMOGLOBIN 27.7 PG (27.0-31.0); MEAN CORPUSCULAR HGB CONC 33.3 g/dL (33.0-36.5); MEAN CORPUSCULAR VOLUME 83.4 FL (78-98); MEAN PLATELET VOLUME 7.4 FL (7.4-10.4); MONOCYTES # (AUTO) 1.4 X10'3 (0-0.9); MONOCYTES % (AUTO) 11.4 % (2-12); NEUTROPHILS # (AUTO) 8.7 X10'3 (1.8-7.7); NEUTROPHILS % (AUTO) 70.4 % (42-75); PLATELET COUNT 400 X10'3 (140-440); RED BLOOD COUNT 2.99 X10'6 (4.70-6.10); RED CELL DISTRIBUTION WIDTH 15.3 % (11.5-14.5); WHITE BLOOD COUNT 12.4 X10'3 (4.5-11.0)
--- NOTE | 2018-06-28 10:12 | NUR ---
PAGED ANGIO:[phone], PLEASE CALL MU [phone]. HAVE ORDER FOR ANJELICA TODAY.
[2018-06-28] MEDS: CefTRIAXone/D5W-Rocephin 1gm 50 ML IV SCH (11:55)
--- NOTE | 2018-06-28 18:25 | NUR ---
Patient in room PCU 3024. I have received report from Herrera CORRALES and had the opportunity to ask questions and assume patient care.
--- NOTE | 2018-06-28 18:37 | NUR ---
Problems reprioritized. Patient report given, questions answered & plan of care reviewed with SAVANNA MAY.
--- NOTE | 2018-06-28 23:00 | NUR ---
Pt became bradycardic while sleeping with HR dropping into the 30s followed by O2 sats dipping into the low 80s multiple times. 2L of O2 was administered. Pt is still having some drops of HR into 40s but O2 sats are only dropping into the high 80s. Will continue to monitor.
[2018-06-29 03:00] VITALS: BP 138/79
[2018-06-29 05:09] LABS: BASOPHILS # (AUTO) 0.1 X10'3 (0-0.2); BASOPHILS % (AUTO) 0.8 % (0-1); EOSINOPHILS # (AUTO) 0.4 X10'3 (0-0.9); EOSINOPHILS % (AUTO) 3.3 % (0-6); HEMATOCRIT 26.4 % (42.0-52.0); HEMOGLOBIN 8.5 g/dl (14.0-17.9); LYMPHOCYTES # (AUTO) 1.9 X10'3 (1.1-4.8); LYMPHOCYTES % (AUTO) 17.1 % (21-51); MEAN CORPUSCULAR HEMOGLOBIN 27.1 PG (27.0-31.0); MEAN CORPUSCULAR HGB CONC 32.1 g/dL (33.0-36.5); MEAN CORPUSCULAR VOLUME 84.3 FL (78-98); MEAN PLATELET VOLUME 7.4 FL (7.4-10.4); MONOCYTES # (AUTO) 1.4 X10'3 (0-0.9); MONOCYTES % (AUTO) 12.9 % (2-12); NEUTROPHILS # (AUTO) 7.3 X10'3 (1.8-7.7); NEUTROPHILS % (AUTO) 65.9 % (42-75); PLATELET COUNT 396 X10'3 (140-440); RED BLOOD COUNT 3.13 X10'6 (4.70-6.10); RED CELL DISTRIBUTION WIDTH 15.3 % (11.5-14.5); WHITE BLOOD COUNT 11.1 X10'3 (4.5-11.0)
[2018-06-29 05:23] LABS: ALANINE AMINOTRANSFERASE 89 U/L (12-78); ALBUMIN 2.7 G/DL (3.4-5.0); ALBUMIN/GLOBULIN RATIO 0.6 (1.1-1.5); ALKALINE PHOSPHATASE 69 IU/L (46-116); ANION GAP 9 (8-16); ASPARTATE AMINO TRANSFERASE 43 U/L (10-37); BILIRUBIN,TOTAL 0.4 MG/DL (0.1-1.0); BLOOD UREA NITROGEN 20 MG/DL (7-18); CALCIUM 8.4 MG/DL (8.5-10.1); CHLORIDE 103 MMOL/L (99-107); CREATININE 1.33 MG/DL (0.60-1.10); GLUCOSE 93 MG/DL (70-104); POTASSIUM 4.1 MMOL/L (3.5-5.1); SODIUM 142 MMOL/L (135-145); TOTAL CARBON DIOXIDE 30.2 MMOL/L (24-32); TOTAL PROTEIN 7.4 G/DL (6.4-8.2); eGFR 57 ML/MIN
[2018-06-29 06:00] VITALS: BP 166/82
--- NOTE | 2018-06-29 06:30 | NUR ---
Patient in room PCU 3024. I have received report from SAVANNA ANGELO and had the opportunity to ask questions and assume patient care.
--- NOTE | 2018-06-29 06:32 | NUR ---
Problems reprioritized. Patient report given, questions answered & plan of care reviewed with Herrera RN.
--- NOTE | 2018-06-29 07:05 | NUR ---
PAGED ANGIO:PLEASE CALL MU [phone] R/T [id number]. TY.
[2018-06-29] MEDS: CefTRIAXone/D5W-Rocephin 1gm 50 ML IV SCH (07:44)
[2018-06-29] MEDS: losartan 50mg tablet PO SCH (07:45)
[2018-06-29] MEDS: aspirin 325mg tablet PO SCH (07:45)
[2018-06-29] MEDS: furosemide 40mg tablet PO SCH (07:45)
[2018-06-29] MEDS: atorvastatin 10mg tablet PO SCH (07:46)
[2018-06-29] MEDS ORDERED: losartan 50mg tablet PO ONE (08:40)
[2018-06-29] MEDS ORDERED: LIDOcaine 1%/PF 5ML 10 MG/ML VIAL ONE (10:07)
[2018-06-29 11:00] VITALS: BP 149/84
[2018-06-29] MEDS ORDERED: LOSA50TA64 PO (12:54)
[2018-06-29] MEDS ORDERED: CEPH500C5 PO (12:54)
--- NOTE | 2018-06-29 13:20 | NUR ---
RA SAT 94% AT REST. AMB 600 FEET ON RA, SAT 92-95% WITH AMB.
--- NOTE | 2018-06-29 13:31 | NUR ---
PAGED CASE MANAGEMENT:[id number], RA SAT 94, AMB 600 FEET, RA SAT 92-95% WITH AMB. MU [phone]. TY
--- NOTE | 2018-06-29 13:41 | NUR ---
PAGER ID: [phone] MESSAGE: DR. SANCHEZ, [id number]. PROBLEM. I AM NOT ABLE TO QUALIFY HIM FOR HOME 02. RA REST 94%, AMB 600FEET RA, SATS 92-95%. I CANNOT SIMULATE THE SLEEP APNEA. WHAT ARE WE GOING TO DO? MU [phone]. TY.
--- NOTE | 2018-06-29 13:48 | NUR ---
PAGED CASE MANAGEMENT:SHALONDA, PLEASE CALL MU [phone] R/T [id number]. TY.
[2018-06-29 15:00] VITALS: BP 164/91
--- NOTE | 2018-06-29 15:50 | NUR ---
PAGER ID: [phone] MESSAGE: DR. SANCHEZ, PLEASE CALL [facility] [phone] R/T [id number]/MOIRA. TY.
[2018-06-29] MEDS ORDERED: lactobacillus rhamnosus 10,000 MMU CELLS/CAPSULE PO SCH (20:00)
[2018-06-30] MEDS ORDERED: losartan 50mg tablet PO SCH (08:00)
== END 2018-06-29 17:05 | disposition home or self-care (01) | DRG 187 ==
LOC: ER 16:06 → ED HOLD 19:34 → PCU 3S 21:10
PROVIDERS: ADMIT Internal Medicine; ATTEND Internal Medicine
DX: J90 Pleural effusion, not elsewhere classified (principal); J98.11 Atelectasis; I48.0 Paroxysmal atrial fibrillation; I71.9 Aortic aneurysm of unspecified site, without rupture; I10 Essential (primary) hypertension; R00.1 Bradycardia, unspecified; G47.30 Sleep apnea, unspecified; R09.02 Hypoxemia; T38.0X5A Adverse effect of glucocorticoids and synthetic analogues, initial encounter; Z79.899 Other long term (current) drug therapy; Z79.82 Long term (current) use of aspirin; Z86.79 Personal history of other diseases of the circulatory system; Z87.442 Personal history of urinary calculi; Z68.39 Body mass index [BMI] 39.0-39.9, adult; Y92.89 Other specified places as the place of occurrence of the external cause
CPT/HCPCS: 36415; 71045; 71250; 76604; 80053; 83735; 83880; 84484; 85025; 85610; 87040; 87070; 93005; 99285; G0378; J0696; J2001; J2270; J2920

== ENCOUNTER 2018-07-09 08:19 | Day surgery (SDC) | payer BC ==
[~2018-07-09] VITALS: Ht 182.9 cm; Wt 131.2 kg
[~2018-07-09 08:19] MED LIST changes: -ASPI-1 PO; -ATOR10TA PO; -CARCD120C PO; -CARV-50 PO; -DILT240C47 PO; +LIDOcaine 1% 30ml preserv. free vial SQ STA; +LOSA50TA64 PO; -METO50TA16 PO; -POTA20TA19 PO
[2018-07-09 08:53] VITALS: BP 133/93
[2018-07-09 09:06] VITALS: BP 143/93
[2018-07-09 09:15] VITALS: BP 144/92
[2018-07-09 11:51] LABS: BASOPHILS,BODY FLUID 1 %; BF MESOTHELIAL CELLS MODERATE; BF RBC COUNT 365000 /CU MM; BF WBC COUNT 1333 /CU MM (0-1000); BFAPPEAR BLOODY; BFCOLOR RED; BFVOLUME 47 ML; EOSINOPHILS,BODY FLUID 11 %; LYMPHOCYTES,BODY FLUID 73 %; MONOCYTES,BODY FLUID 11 %; NEUTROPHILS,BODY FLUID 4 %
== END 2018-07-09 09:55 | disposition home or self-care (01) ==
LOC: SSTAY O 08:19
PROVIDERS: ATTEND Radiology Diagnostic Radiology
DX: J90 Pleural effusion, not elsewhere classified (principal)
CPT/HCPCS: 32555; 71045; 87070; 89051; J3490

== ENCOUNTER 2018-10-01 16:21 | Emergency (ER) | payer BC, SELFPAY ==
[~2018-10-01] VITALS: Ht 182.9 cm; Wt 130.0 kg
[~2018-10-01 16:21] MED LIST changes: -FURO-149 PO; -LIDOcaine 1% 30ml preserv. free vial SQ STA
[2018-10-01 19:48] LABS: BASOPHILS # (AUTO) 0.1 X10'3 (0-0.2); BASOPHILS % (AUTO) 1.4 % (0-1); EOSINOPHILS # (AUTO) 0.2 X10'3 (0-0.9); EOSINOPHILS % (AUTO) 2.1 % (0-6); HEMATOCRIT 28.1 % (42.0-52.0); HEMOGLOBIN 9.2 g/dl (14.0-17.9); LYMPHOCYTES # (AUTO) 1.7 X10'3 (1.1-4.8); LYMPHOCYTES % (AUTO) 15.6 % (21-51); MEAN CORPUSCULAR HEMOGLOBIN 25.3 PG (27.0-31.0); MEAN CORPUSCULAR HGB CONC 32.7 g/dL (33.0-36.5); MEAN CORPUSCULAR VOLUME 77.4 FL (78-98); MEAN PLATELET VOLUME 7.4 FL (7.4-10.4); MONOCYTES # (AUTO) 1.2 X10'3 (0-0.9); NEUTROPHILS # (AUTO) 7.5 X10'3 (1.8-7.7); NEUTROPHILS % (AUTO) 69.9 % (42-75); PLATELET COUNT 493 X10'3 (140-440); RED BLOOD COUNT 3.63 X10'6 (4.70-6.10); RED CELL DISTRIBUTION WIDTH 17.8 % (11.5-14.5); WHITE BLOOD COUNT 10.8 X10'3 (4.5-11.0)
[2018-10-01 20:01] LABS: ALANINE AMINOTRANSFERASE 135 U/L (12-78); ALBUMIN/GLOBULIN RATIO 0.5 (1.1-1.5); ALKALINE PHOSPHATASE 101 IU/L (46-116); ANION GAP 7 (8-16); ASPARTATE AMINO TRANSFERASE 46 U/L (10-37); BILIRUBIN,TOTAL 0.4 MG/DL (0.1-1.0); BLOOD UREA NITROGEN 17 MG/DL (7-18); BUN/CREATININE RATIO 13.9 (5.4-32.0); CALCIUM 9.1 MG/DL (8.5-10.1); CHLORIDE 104 MMOL/L (99-107); CREATININE 1.22 MG/DL (0.60-1.10); GLUCOSE 92 MG/DL (70-104); LIPASE 100 U/L (73-393); POTASSIUM 4.3 MMOL/L (3.5-5.1); SODIUM 138 MMOL/L (135-145); TOTAL CARBON DIOXIDE 26.9 MMOL/L (24-32); TOTAL PROTEIN 8.7 G/DL (6.4-8.2); eGFR 63 ML/MIN
--- NOTE | 2018-10-01 20:15 | NUR ---
MD LEAL GAVE VERBAL ORDER FOR ORAL REHYDRATION, PT GIVEN 1000CC NS.
[2018-10-01 20:48] LABS: CLARITY,URINE CLEAR (Clear); COLOR,URINE YELLOW (Yellow); GLUCOSE, URINE NEGATIVE (Neg); KETONES,URINE NEGATIVE (Neg); LEUKOCYTE ESTERASE ,URINE NEGATIVE (Neg); NITRITES, URINE NEGATIVE (Neg); OCCULT BLOOD,URINE SMALL (Neg); PROTEIN,URINE 30 mg/dl (Neg); UROBILINOGEN,URINE 0.2 E.U/dL (0.2-1.0)
[2018-10-01 21:00] LABS: UA COLLECTION TYPE VOIDED
[2018-10-01 21:02] LABS: BACTERIA,URINE NONE SEEN /HPF (Neg); HYALINE CASTS 0-3 /LPF (NEGATIVE); MUCUS STRANDS MANY /LPF (Neg); RBC,URINE 0-2 /HPF (0-2); SQUAMOUS EPITHELIAL CELL,UR NONE SEEN /LPF (FEW); WBC,URINE 0-4 /HPF (0-4)
--- NOTE | 2018-10-01 21:26 | NUR ---
DR LEAL AT BEDSIDE WITH PT
[2018-10-01] MEDS ORDERED: normal saline 1000ML IV soln IVB ONE (21:30)
[2018-10-01] MEDS ORDERED: meperidine/PF 50mg/ml syringe IV ONE (21:30)
[2018-10-01] MEDS ORDERED: nitroGLYCERIN 0.4mg/hour patch TD ONE (21:30)
[2018-10-01] MEDS ORDERED: tamsulosin 0.4mg capsule PO ONE (21:30)
[2018-10-02] MEDS ORDERED: DOXY100C2 PO (00:53)
[2018-10-02] MEDS ORDERED: HYDR-4383 PO (00:53)
[2018-10-02] MEDS ORDERED: DOXYCYCLINE 100MG CAPSULE PO STA (00:54)
[2018-10-02] MEDS ORDERED: HYDROcodone/acetaminophen 10/325mg tab PO ONE (00:55)
[2018-10-02 01:17] VITALS: BP 145/96
== END 2018-10-02 01:06 | disposition home or self-care (01) ==
LOC: ER 16:22
DX: S30.0XXA Contusion of lower back and pelvis, initial encounter (principal); G97.1 Other reaction to spinal and lumbar puncture; J90 Pleural effusion, not elsewhere classified; N23 Unspecified renal colic; Z86.79 Personal history of other diseases of the circulatory system; X58.XXXA Exposure to other specified factors, initial encounter; Y93.89 Activity, other specified; Y92.89 Other specified places as the place of occurrence of the external cause; Y99.8 Other external cause status; Y84.4 Aspiration of fluid as the cause of abnormal reaction of the patient, or of later complication, without mention of misadventure at the time of the procedure
CPT/HCPCS: 36415; 74176; 80053; 81001; 83690; 85025; 93005; 96374; 99284; J2175; J7030